=== PATIENT | male | born 1955 | race Caucasian/White ===

== ENCOUNTER 2016-06-12 13:58 | Inpatient (IN) | payer OTHER ==
[2016-06-12] VITALS (22 sets, daily range): BP systolic 95–177; BP diastolic 54–126; PULSE 74–133; RESP 24–40; TEMP 98.3–98.6; O2SAT 92–100
[~2016-06-12] VITALS: Ht 170.2 cm; Wt 99.9 kg
[2016-06-12] MEDS ORDERED: RESP: ALBUTEROL 2.5 MG/IPRATROPIUM 0.5 MG NEB (PRN) ONE (14:06)
[2016-06-12] MEDS: RESP: ALBUTEROL 2.5 MG/IPRATROPIUM 0.5 MG NEB (SCH) INH ×4 (14:12→20:13)
[2016-06-12] MEDS ORDERED: methylPREDNISolone SOD SUCC 125 MG/2 ML VIAL IVP ONE (14:15)
[2016-06-12] MEDS: SODIUM CHLORIDE 0.9% FLUSH 5 ML FLUSH IVF PRN ×2 (14:17→15:10)
[2016-06-12 14:21] LABS: BLOOD GAS BASE EXCESS 8.3 mmol/L (-2-2); BLOOD GAS CARBOXYHEMOGLOBIN 1.7 % (0-4); BLOOD GAS HCO3 36 mmol/L (22-26); BLOOD GAS METHEMOGLOBIN 1.3 % (0-2); BLOOD GAS O2 HGB SATURATION 97 % (90-100); BLOOD GAS OXYGEN CONTENT 17.3 Vol % (12.0-20.0); BLOOD GAS PCO2 88 mmHG (38-42); BLOOD GAS PO2 356 mmHG (61-120); BLOOD GAS TOTAL HGB 12.1 G/DL (12.0-16.0); TEMP CORR TO 98.6
[2016-06-12 14:24] LABS: AUTOMATED NEUTROPHIL # 7.6 TH/MM3 (1.8-7.7); BASOPHIL % 0.4 % (0.0-2.0); EOSINOPHIL # 0.8 TH/MM3 (0-0.4); EOSINOPHIL % 6.7 % (0.0-4.0); HEMATOCRIT 39.9 % (39.0-51.0); LYMPH % 17.4 % (9.0-44.0); LYMPHOCYTE # 2.1 TH/MM3 (1.0-4.8); MEAN CELL VOLUME 85.2 FL (80.0-100.0); MEAN CORPUSCULAR HEMOGLOBIN 26.6 PG (27.0-34.0); MEAN CORPUSCULAR HGB CONC 31.2 % (32.0-36.0); MONO % 13.9 % (0.0-8.0); NEUT % 61.6 % (16.0-70.0); PLATELET COUNT 223 TH/MM3 (150-450); RED BLOOD COUNT 4.69 MIL/MM3 (4.50-5.90); RED CELL DISTRIBUTION WIDTH 16.7 % (11.6-17.2); WHITE BLOOD COUNT 12.2 TH/MM3 (4.0-11.0)
[2016-06-12 14:25] LABS: HEMO FLAGS DIFF FINAL
[2016-06-12 14:28] LABS: POTASSIUM 4.3 MEQ/L (3.5-5.1)
[2016-06-12] MEDS ORDERED: ALBU1.25 NEB (14:28)
[2016-06-12] MEDS ORDERED: VENTAER INH (14:28)
[2016-06-12 14:31] LABS: BICARBONATE 37.1 MEQ/L (21.0-32.0); MAGNESIUM 1.7 MG/DL (1.5-2.5)
[2016-06-12 14:32] LABS: INTERNATIONAL NORMALIZED RATIO 0.9 RATIO; PROTHROMBIN TIME - PATIENT 9.9 SEC (9.8-11.6)
[2016-06-12] MEDS: RESP: ALBUTEROL 2.5 MG/3 ML NEB (SCH) INH ×3 (14:33→14:44)
--- NOTE | 2016-06-12 14:34 | PD ---
HPI Chief Complaint: Respiratory Distress Time Seen by Provider: 14:06 Travel History International Travel<30 days: No Contact w/Intl Traveler<30days: No Traveled to known affect area: No History of Present Illness HPI 61-year-old male came to the emergency room with history of severe shortness of breath. Patient has history of COPD and requires home oxygen. He says he has been sick for past 2 days. Patient says that he has been having chest congestion and cough prior to that. He is been taking his nebulizer but it's not helping. He has never been hospitalized in ICU or intubated. His last admission for COPD was in 2003. Patient could only speak one word per breath. His oxygen saturation in triage was 72% on his home O2 cylinder. Patient told me he quit smoking 2 years ago. PFSH Past Medical History Narrative Medical List of his past medical history as reviewed from the nursing note. Arthritis: No Asthma: Yes Autoimmune Disease: No Heart Rhythm Problems: No Cardiovascular Problems: No High Cholesterol: No Chest Pain: No Congestive Heart Failure: No COPD: Yes Cerebrovascular Accident: No Diabetes: No Diminished Hearing: No Gastrointestinal Disorders: No GERD: No Glaucoma: No Headaches: No Hepatitis: Yes Hiatal Hernia: No Hypertension: No Kidney Stones: No Musculoskeletal: No Neurologic: No Respiratory: No Myocardial Infarction: No Renal Failure: No Seizures: No Sleep Apnea: No Thyroid Disease: No Ulcer: No Tetanus Vaccination: Unknown Influenza Vaccination: No Past Surgical History Abdominal Surgery: No AICD: No Cardiac Surgery: No Ear Surgery: No Endocrine Surgery: No Eye Surgery: No Genitourinary Surgery: No Gynecologic Surgery: No Neurologic Surgery: No Oral Surgery: No Pacemaker: No Thoracic Surgery: No Other Surgery: Yes (finger right 3rd) Social History Alcohol Use: Yes (occ) Tobacco Use: Yes (quit x2 months ago) Substance Use: No Allergies-Medications (Allergen,Severity, Reaction): Coded Allergies: No Known Allergies (Verified Allergy, Severe, 03/25/04) Comments No known drug allergies. Reported Meds & Prescriptions Reported Meds & Active Scripts Active Reported Albuterol Neb (Albuterol Sulfate) 1.25 Mg/3 Ml Neb 1.25 Mg NEB Q4HR NEB PRN Ventolin Hfa 18 GM Inh (Albuterol Sulfate) 90 Mcg/Act Aer 2 Puff INH Q4H PRN Narrative Medication List of his home medications reviewed from the nursing note. Review of Systems Except as stated in HPI: all other systems reviewed are Neg Physical Exam Narrative GENERAL: Awake, severe respiratory distress, anxious SKIN: Warm and dry. HEAD: Atraumatic. Normocephalic. EYES: Pupils equal and round. No scleral icterus. No injection or drainage. ENT: No nasal bleeding or discharge. Mucous membranes pink and moist. NECK: Trachea midline. No JVD. CARDIOVASCULAR: Regular rate and rhythm. No murmur appreciated. RESPIRATORY: Severe respiratory distress with air hunger, accessory muscles of respiration used, extremely diminished air entry GASTROINTESTINAL: Abdomen soft, non-tender, nondistended. Hepatic and splenic margins not palpable. MUSCULOSKELETAL: No obvious deformities. No clubbing. No cyanosis. No edema. NEUROLOGICAL: Awake and alert. No obvious cranial nerve deficits. Motor grossly within normal limits. Normal speech. PSYCHIATRIC: Appropriate mood and affect; insight and judgment normal. Data Data Last Documented VS Vital Signs Date Time Temp Pulse Resp B/P Pulse Ox O2 Delivery O2 Flow Rate FiO2 06/12/16 15:32 133 26 117/56 95 BiPAP 35 06/12/16 14:47 15 06/12/16 14:19 98.3 Orders Albuterol-Ipratropium Neb (Duoneb Neb) (06/12/16 14:06) Complete Blood Count With Diff (06/12/16 14:07) Basic Metabolic Panel (Bmp) (06/12/16 14:07) B-Type Natriuretic Peptide (06/12/16 14:07) Prothrombin Time / Inr (Pt) (06/12/16 14:07) Magnesium (Mg) (06/12/16 14:07) Ckmb (Isoenzyme) Profile (06/12/16 14:07) Troponin I (06/12/16 14:07) Arterial Blood Gas (Abg) (06/12/16 14:07) Urinalysis - C+S If Indicated (06/12/16 14:07) Blood Culture (06/12/16 14:07) Iv Access Insert/Monitor (06/12/16 14:07) Electrocardiogram (06/12/16 14:07) Ecg Monitoring (06/12/16 14:07) Oximetry (06/12/16 14:07) Oxygen Administration (06/12/16 14:07) Chest, Single Ap (06/12/16 14:07) Sodium Chloride 0.9% Flush (Ns Flush) (06/12/16 14:15) Methylprednisolone So Succ Inj (Solumedr (06/12/16 14:15) Albuterol-Ipratropium Neb (Duoneb Neb) (06/12/16 14:15) Lactic Acid (06/12/16 14:08) Albuterol Neb (Albuterol Neb) (06/12/16 14:30) Resp Bipap / Cpap Non Invas Vt (06/12/16 ) Arterial Blood Gas (Abg) (06/12/16 ) Diltiazem Inj (Cardizem Inj) (06/12/16 15:15) Sodium Chlorid 0.9% 500 Ml Inj (Ns 500 M (06/12/16 15:15) Diltiazem Inj (Cardizem Inj) (06/12/16 15:02) Diltiazem (Cardizem) (06/12/16 15:15) Heparin Inj (Heparin Inj) (06/12/16 15:15) Heparin-D5w Inj (Heparin-D5w Inj) (06/12/16 15:15) Act Partial Throm Time (Ptt) (06/12/16 15:13) Admit Order (Ed Use Only) (06/12/16 15:53) Labs Laboratory Tests Test 06/12/16 06/12/16 06/12/16 14:10 14:12 15:16 White Blood Count 12.2 TH/MM3 Red Blood Count 4.69 MIL/MM3 Hemoglobin 12.5 GM/DL Hematocrit 39.9 % Mean Corpuscular Volume 85.2 FL Mean Corpuscular Hemoglobin 26.6 PG Mean Corpuscular Hemoglobin 31.2 % Concent Red Cell Distribution Width 16.7 % Platelet Count 223 TH/MM3 Mean Platelet Volume 7.7 FL Neutrophils (%) (Auto) 61.6 % Lymphocytes (%) (Auto) 17.4 % Monocytes (%) (Auto) 13.9 % Eosinophils (%) (Auto) 6.7 % Basophils (%) (Auto) 0.4 % Neutrophils # (Auto) 7.6 TH/MM3 Lymphocytes # (Auto) 2.1 TH/MM3 Monocytes # (Auto) 1.7 TH/MM3 Eosinophils # (Auto) 0.8 TH/MM3 Basophils # (Auto) 0.0 TH/MM3 CBC Comment DIFF FINAL Differential Comment Prothrombin Time 9.9 SEC Prothromb Time International 0.9 RATIO Ratio Activated Partial 26.3 SEC Thromboplast Time Sodium Level 141 MEQ/L Potassium Level 4.3 MEQ/L Chloride Level 99 MEQ/L Carbon Dioxide Level 37.1 MEQ/L Anion Gap 5 MEQ/L Blood Urea Nitrogen 12 MG/DL Creatinine 0.62 MG/DL Estimat Glomerular Filtration 131 ML/MIN Rate Random Glucose 115 MG/DL Lactic Acid Level 1.0 mmol/L Calcium Level 8.5 MG/DL Magnesium Level 1.7 MG/DL Total Creatine Kinase 48 U/L Troponin I 0.02 NG/ML B-Type Natriuretic Peptide 167 PG/ML Blood Gas Puncture Site RT RADIAL RT RADIAL Blood Gas Patient Temperature 98.6 98.6 Blood Gas HCO3 36 mmol/L 33 mmol/L Blood Gas Base Excess 8.3 mmol/L 6.9 mmol/L Blood Gas Oxygen Saturation 97 % 96 % Arterial Blood pH 7.23 7.31 Arterial Blood Partial 88 mmHG 67 mmHG Pressure CO2 Arterial Blood Partial 356 mmHG 131 mmHG Pressure O2 Arterial Blood Oxygen Content 17.3 Vol % 16.0 Vol % Arterial Blood 1.7 % 2.0 % Carboxyhemoglobin Arterial Blood Methemoglobin 1.3 % 1.3 % Blood Gas Hemoglobin 12.1 G/DL 11.6 G/DL Oxygen Delivery Device NRB BIPAP Blood Gas Inspired Oxygen 100 % 45 % Blood Gas Ventilator Setting 15 IPAP 7 EPAP MDM Medical Decision Making Medical Screen Exam Complete: Yes Emergency Medical Condition: Yes Medical Record Reviewed: Yes Interpretation(s) Twelve-lead EKG was reviewed by me. There is a lot of motion artifact. It's hard to tell whether it sinus tachycardia or atrial fibrillation/atrial flutter. Heart rate is 150 bpm. Differential Diagnosis COPD exacerbation, CHF exacerbation, pneumonia Narrative Course 2:33 PM patient upon arrival was given 3 duonebs and oxygen saturation is doing well at this point. However blood gas shows respiratory acidosis. I have ordered a BiPAP and 3 more albuterol nebulizers. Upon reassessing his lung sounds patient still is very tight but I can hear some end expiratory wheeze. I will also ordered 125 mg of Solu-Medrol. 3:15 PM patient's heart rate constantly remained in the 150s. EKG was repeated to get a better baseline which still showed motion artifact but good P waves could not be detected. I decided to give him a 15 mg bolus of Cardizem to see if the rate would slow down and show any atrial fibrillation/atrial flutter. Patient's blood pressure prior to injecting the Cardizem bolus was 103 systolic. Patient was still awake and answering questions appropriately and fully alert. His cousin had just walked into the room who said she had more of his information and that he has history of atrial fibrillation. As soon as Cardizem was given heart rate dropped down to the 90s and the rhythm now is in A. fib with a flutter. However blood pressure dropped to 86 systolic. Patient is getting an IV fluid bolus. I have ordered heparin bolus and drip for him. Patient obviously will require to be admitted. Critical Care Narrative Aggregate critical care time was 60 minutes. Time to perform other separately billable procedures was not included in the critical care time. My time did not include minutes spent treating any other patients simultaneously or on activities that did not directly contribute to the patient's treatment. The services I provided to this patient were to treat and/or prevent clinically significant deterioration that could result in: Severe respiratory distress, respiratory acidosis, BiPAP, multiple nebulizer administration, atrial flutter with 2-1 block, heparin bolus and drip I provided critical care services requiring my management, as noted below: Chart data review, documentation time, medication orders and management, vital sign assessments/reviewing monitor data, ordering and reviewing lab tests, ordering and interpreting/reviewing x-rays and diagnostic studies, care of the patient and discussion of the patient with the admitting physicians. Procedures EKG Prior to Arrival: No Diagnosis Primary Impression: COPD exacerbation Additional Impressions: Atrial flutter, paroxysmal Signs and symptoms of severe respiratory distress Respiratory acidosis Admitting Information Admitting Physician Requests: Rishabh Reinoso MD Jun 12, 2016 14:34
[2016-06-12] MEDS ORDERED: DILTIAZEM HCL 25 MG/5 ML VIAL ONE (15:02)
[2016-06-12] MEDS ORDERED: HEPARIN SODIUM - IV 10,000 UNITS/10 ML VIAL IV ONE (15:15)
[2016-06-12] MEDS ORDERED: SODIUM CHLORID 0.9% 500 ML INJ 500 ML IV ONE (15:15)
[2016-06-12] MEDS ORDERED: DILTIAZEM HCL 25 MG/5 ML VIAL IV ONE (15:15)
[2016-06-12] MEDS ORDERED: DILTIAZEM HCL 60 MG TAB PO ONE (15:15)
--- NOTE | 2016-06-12 15:19 | RADHPO ---
EXAM DATE/TIME: 06/12/2016 14:24 [facility] COMPARISON: No previous studies available for comparison. INDICATIONS : Short of breath MEDICAL HISTORY : Chronic obstructive pulmonary disease. Asthma SURGICAL HISTORY : None. ENCOUNTER: Initial ACUITY: 1 day PAIN SCORE: 3/10 LOCATION: Bilateral chest FINDINGS: A single view of the chest demonstrates the lungs to be symmetrically aerated without evidence of mas s, infiltrate or effusion. There is some prominence of the pulmonary vasculature. The heart size is m ildly enlarged.. Osseous structures are intact. CONCLUSION: Pulmonary venous congestion and mild cardiomegaly. No acute pulmonary infiltrates. Angel Kingsley MD on June 12, 2016 at 15:17 Board Certified Radiologist. This report was verified electronically.
[2016-06-12 15:24] LABS: BLOOD GAS BASE EXCESS 6.9 mmol/L (-2-2); BLOOD GAS HCO3 33 mmol/L (22-26); BLOOD GAS METHEMOGLOBIN 1.3 % (0-2); BLOOD GAS O2 HGB SATURATION 96 % (90-100); BLOOD GAS PCO2 67 mmHG (38-42); BLOOD GAS PO2 131 mmHG (61-120); BLOOD GAS TOTAL HGB 11.6 G/DL (12.0-16.0); TEMP CORR TO 98.6
[2016-06-12 15:25] LABS: CRITICAL VALUE YES; OXYGEN DEVICE BIPAP
[2016-06-12 15:26] LABS: DRAW SITE RT RADIAL; FIO2 45 %; NUMBER OF ARTERIAL PUNCTURES 1; STAT YES; ULNAR PULSE PRESENT; VENT SETTINGS 15 IPAP 7 EPAP
[2016-06-12 15:27] LABS: APTT (PATIENT) 26.3 SEC (24.3-30.1)
[2016-06-12] MEDS: HEPARIN-D5W INJ 250 ML IV SCH (15:41)
[2016-06-12] MEDS ORDERED: CHLORHEXIDINE GLUCONATE 2 % 1 PACK (2 CLOTHS)(extra cloths) TOP PRN (17:45)
[2016-06-12 18:12] LABS: CRITICAL VALUE YES; DRAW SITE RT RADIAL; FIO2 100 %; NUMBER OF ARTERIAL PUNCTURES 1; OXYGEN DEVICE NRB; STAT YES; ULNAR PULSE PRESENT
[2016-06-12 19:59] LABS: APTT (PATIENT) 46.5 SEC (24.3-30.1)
[2016-06-12] MEDS: methylPREDNISolone SOD SUCC 125 MG/2 ML VIAL IVP SCH (20:25)
[2016-06-12] MEDS: RESP: ALBUTEROL 2.5 MG/3 ML NEB (PRN) INH (23:36)
[2016-06-13] VITALS (24 sets, daily range): BP systolic 132–155; BP diastolic 59–80; PULSE 72–148; RESP 16–38; TEMP 97.5–98.3; O2SAT 89–98
[2016-06-13 02:32] LABS: APTT (PATIENT) 48.4 SEC (24.3-30.1)
[2016-06-13] MEDS: HEPARIN-D5W INJ 250 ML IV SCH (03:21)
[2016-06-13] MEDS: CHLORHEXIDINE GLUCONATE 2 % 1 PACK (2 CLOTHS)(taper/protocol) TOP SCH (03:29)
[2016-06-13] MEDS: methylPREDNISolone SOD SUCC 125 MG/2 ML VIAL IVP SCH ×4 (03:29→21:02)
[2016-06-13] MEDS: RESP: ALBUTEROL 2.5 MG/3 ML NEB (PRN) INH (04:01)
[2016-06-13 06:26] LABS: AUTOMATED NEUTROPHIL # 5.6 TH/MM3 (1.8-7.7); EOSINOPHIL % 0.1 % (0.0-4.0); HEMATOCRIT 33.3 % (39.0-51.0); HEMO FLAGS DIFF FINAL; LYMPH % 8.6 % (9.0-44.0); LYMPHOCYTE # 0.5 TH/MM3 (1.0-4.8); MEAN CELL VOLUME 82.9 FL (80.0-100.0); MEAN CORPUSCULAR HEMOGLOBIN 26.2 PG (27.0-34.0); MEAN CORPUSCULAR HGB CONC 31.6 % (32.0-36.0); MONO % 2.1 % (0.0-8.0); NEUT % 89.2 % (16.0-70.0); PLATELET COUNT 187 TH/MM3 (150-450); RED BLOOD COUNT 4.01 MIL/MM3 (4.50-5.90); RED CELL DISTRIBUTION WIDTH 15.8 % (11.6-17.2); WHITE BLOOD COUNT 6.2 TH/MM3 (4.0-11.0)
[2016-06-13 06:36] LABS: POTASSIUM 4.1 MEQ/L (3.5-5.1)
[2016-06-13 06:39] LABS: BICARBONATE 33.6 MEQ/L (21.0-32.0)
[2016-06-13 06:41] LABS: APTT (PATIENT) 46.4 SEC (24.3-30.1)
[2016-06-13] MEDS: RESP: ALBUTEROL 2.5 MG/IPRATROPIUM 0.5 MG NEB (SCH) INH ×4 (07:21→19:11)
[2016-06-13] MEDS: AZITHROMYCIN 250 MG TAB PO SCH (08:36)
--- NOTE | 2016-06-13 10:14 | HHI.HP ---
[facility] No Primary Care Physician Admission Diagnosis respiratory distress, atrial flutter, COPD exacerbation Diagnoses: (1) Acute respiratory failure Diagnosis: Principal (2) COPD exacerbation (3) Atrial flutter, paroxysmal Chief Complaint: Dyspnea Travel History International Travel<30 Days: No Contact w/Intl Traveler <30 Da: No Traveled to Known Affected Are: No History of Present Illness The patient is a 61-year-old male with known history of COPD who presented to emergency department with worsening shortness of breath over the past few days. He uses 3 L of oxygen at night, but no supplemental oxygen during the day. He has seen pulmonology recently and was supposed to get a CT of his chest with contrast done yesterday as an outpatient. He was unable to go get the test done because he had worsening symptoms and presented to the ER. He states that he does feel better today after receiving treatment. He is currently on 4 L of oxygen. He developed atrial fibrillation/flutter with RVR while in the ER. He was given a dose of IV Cardizem and his heart rate improved. He denies chest pain. Still reporting cough and dyspnea. Review of Systems Constitutional: DENIES: Fever, Chills, Night Sweats Eyes: DENIES: Blurred vision, Vision loss Ears, nose, mouth, throat: DENIES: Hearing loss Respiratory: COMPLAINS OF: Cough, Wheezing, Shortness of breath, DENIES: Sputum production Cardiovascular: COMPLAINS OF: Dyspnea on Exertion, DENIES: Chest pain, Palpitations, Lower Extremity Edema Gastrointestinal: DENIES: Abdominal pain, Constipation, Diarrhea, Nausea, Vomiting Genitourinary: DENIES: Urinary frequency, Urinary incontinence, Urgency, Hematuria, Dysuria, Nocturia Musculoskeletal: DENIES: Joint pain, Muscle aches Integumentary: DENIES: Pruritus, Rash Hematologic/lymphatic: DENIES: Bruising Neurologic: DENIES: Headache Past Family Social History Past Medical History Asthma/COPD History of hepatitis Past Surgical History Right third finger surgery Reported Medications Albuterol Neb (Albuterol Sulfate) 1.25 Mg/3 Ml Neb 1.25 Mg NEB Q4HR NEB PRN Ventolin Hfa 18 GM Inh (Albuterol Sulfate) 90 Mcg/Act Aer 2 Puff INH Q4H PRN Allergies: Coded Allergies: No Known Allergies (Verified Allergy, Severe, 03/25/04) Family History Denies Social History Reports occasional alcohol use. Quit smoking 2 months ago. Denies illicit drug use. Physical Exam Vital Signs Vital Signs Date Time Temp Pulse Resp B/P Pulse Ox O2 Delivery O2 Flow Rate FiO2 06/13/16 08:00 97.7 86 24 134/77 97 06/13/16 07:23 96 Nasal Cannula 4.00 06/13/16 06:01 90 06/13/16 06:01 90 25 137/66 94 06/13/16 05:01 84 06/13/16 05:01 84 24 132/59 96 06/13/16 04:01 78 06/13/16 04:01 96 Nasal Cannula 4.00 06/13/16 04:01 97.5 78 24 155/80 95 06/13/16 03:01 74 06/13/16 03:01 74 23 134/64 98 06/13/16 02:01 74 37 143/62 96 06/13/16 02:01 74 06/13/16 01:11 98 35 06/13/16 01:01 72 27 140/74 96 06/13/16 01:01 72 06/13/16 00:01 74 06/13/16 00:01 97.7 74 16 135/68 98 06/12/16 23:59 98 35 06/12/16 23:01 82 28 154/83 95 06/12/16 23:01 82 06/12/16 22:01 74 06/12/16 22:01 74 24 141/67 95 06/12/16 21:01 90 06/12/16 21:01 90 40 155/72 95 06/12/16 20:13 94 Nasal Cannula 4.00 06/12/16 20:01 96 06/12/16 20:01 98.4 96 28 145/87 92 06/12/16 19:01 84 34 150/88 94 06/12/16 18:01 100 34 128/73 95 06/12/16 18:01 98.6 87 30 128/73 94 06/12/16 18:00 93 06/12/16 17:20 104 26 128/71 94 06/12/16 16:46 93 Venturi Mask 6.00 50 06/12/16 16:40 108 26 98/67 94 06/12/16 16:30 104 26 109/56 95 06/12/16 16:20 120 148/54 95 06/12/16 16:10 130 95/73 97 06/12/16 15:32 133 26 117/56 95 BiPAP 35 06/12/16 15:30 96 35 06/12/16 15:11 99 06/12/16 14:47 98 BiPAP 15 45 06/12/16 14:33 96 45 06/12/16 14:29 144/92 06/12/16 14:21 150 34 98 Non-Rebreather 14 06/12/16 14:21 98 Non-Rebreather 14 06/12/16 14:21 98 06/12/16 14:19 98.3 130 34 177/126 100 06/12/16 14:15 93 Non-Rebreather 15.00 100 Physical Exam GENERAL: Well-nourished, well-developed [] in no acute distress. HEENT: Normocephalic, atraumatic. Pupils equal, round and reactive. Extraocular movements intact. No scleral icterus. No injection or drainage. Oropharynx is clear. Mucous membranes are moist. CARDIOVASCULAR: Regular rate and rhythm without murmurs, gallops, or rubs. RESPIRATORY: Clear to auscultation. No wheezes, rales, or rhonchi. Breathing is non-labored. GASTROINTESTINAL: Abdomen soft, non-tender, nondistended. EXTREMITIES: No lower extremity edema. No calf tenderness. PSYCH: Alert and oriented x 3. Laboratory Laboratory Tests Test 06/12/16 06/12/16 06/12/16 06/12/16 14:10 14:12 15:16 19:23 White Blood Count 12.2 Red Blood Count 4.69 Hemoglobin 12.5 Hematocrit 39.9 Mean Corpuscular Volume 85.2 Mean Corpuscular Hemoglobin 26.6 Mean Corpuscular Hemoglobin 31.2 Concent Red Cell Distribution Width 16.7 Platelet Count 223 Mean Platelet Volume 7.7 Neutrophils (%) (Auto) 61.6 Lymphocytes (%) (Auto) 17.4 Monocytes (%) (Auto) 13.9 Eosinophils (%) (Auto) 6.7 Basophils (%) (Auto) 0.4 Neutrophils # (Auto) 7.6 Lymphocytes # (Auto) 2.1 Monocytes # (Auto) 1.7 Eosinophils # (Auto) 0.8 Basophils # (Auto) 0.0 CBC Comment DIFF FINAL Differential Comment Prothrombin Time 9.9 Prothromb Time International 0.9 Ratio Activated Partial 26.3 46.5 Thromboplast Time Sodium Level 141 Potassium Level 4.3 Chloride Level 99 Carbon Dioxide Level 37.1 Anion Gap 5 Blood Urea Nitrogen 12 Creatinine 0.62 Estimat Glomerular Filtration 131 Rate Random Glucose 115 Lactic Acid Level 1.0 Calcium Level 8.5 Magnesium Level 1.7 Total Creatine Kinase 48 Troponin I 0.02 B-Type Natriuretic Peptide 167 Blood Gas Puncture Site RT RADIAL RT RADIAL Blood Gas Patient Temperature 98.6 98.6 Blood Gas HCO3 36 33 Blood Gas Base Excess 8.3 6.9 Blood Gas Oxygen Saturation 97 96 Arterial Blood pH 7.23 7.31 Arterial Blood Partial 88 67 Pressure CO2 Arterial Blood Partial 356 131 Pressure O2 Arterial Blood Oxygen Content 17.3 16.0 Arterial Blood 1.7 2.0 Carboxyhemoglobin Arterial Blood Methemoglobin 1.3 1.3 Blood Gas Hemoglobin 12.1 11.6 Oxygen Delivery Device NRB BIPAP Blood Gas Inspired Oxygen 100 45 Blood Gas Ventilator Setting 15 IPAP 7 EPAP Test 06/13/16 06/13/16 02:05 06:02 Activated Partial 48.4 46.4 Thromboplast Time White Blood Count 6.2 Red Blood Count 4.01 Hemoglobin 10.5 Hematocrit 33.3 Mean Corpuscular Volume 82.9 Mean Corpuscular Hemoglobin 26.2 Mean Corpuscular Hemoglobin 31.6 Concent Red Cell Distribution Width 15.8 Platelet Count 187 Mean Platelet Volume 7.8 Neutrophils (%) (Auto) 89.2 Lymphocytes (%) (Auto) 8.6 Monocytes (%) (Auto) 2.1 Eosinophils (%) (Auto) 0.1 Basophils (%) (Auto) 0.0 Neutrophils # (Auto) 5.6 Lymphocytes # (Auto) 0.5 Monocytes # (Auto) 0.1 Eosinophils # (Auto) 0.0 Basophils # (Auto) 0.0 CBC Comment DIFF FINAL Differential Comment Sodium Level 139 Potassium Level 4.1 Chloride Level 98 Carbon Dioxide Level 33.6 Anion Gap 7 Blood Urea Nitrogen 17 Creatinine 0.67 Estimat Glomerular Filtration 120 Rate Random Glucose 216 Calcium Level 8.3 Date/Time Procedure Status Source Growth 06/12/16 21:50 Influenza Types A,B Antigen (AVEL) - Final Complete Nasal Washing NEGATIVE FOR FLU A AND B ANTIGEN.... 06/12/16 14:15 Aerobic Blood Culture Received Blood Peripheral Pending 06/12/16 14:15 Anaerobic Blood Culture Received Blood Peripheral Pending Result Diagram: 06/13/16 0602 06/13/16 0602 Imaging Last Impressions Chest X-Ray 06/12/16 1407 Signed Impressions: Service Date/Time: Sunday, June 12, 2016 14:24 - CONCLUSION: Pulmonary venous congestion and mild cardiomegaly. No acute pulmonary infiltrates. Angel Kingsley MD Assessment and Plan Assessment and Plan 1. Acute respiratory failure with hypoxia and hypercapnia: Secondary to COPD exacerbation. Continue supplemental oxygen. Did require BiPAP initially. Continue bronchodilators, steroids, antibiotics. 2. Atrial fibrillation with RVR: Heart rate improved after he was given a dose of IV Cardizem in the ER. Rhythm is still irregular. Intermittently tachycardic up to 140s with exertion, 115 at rest. At oral Cardizem. Monitor on telemetry. Consult cardiology. Start Lovenox, Coumadin. 3. DVT prophylaxis: Lovenox. Problem Qualifiers (1) Acute respiratory failure: Qualified Code: J96.01 - Acute respiratory failure with hypoxia and hypercapnia Phill Sultana MD Jun 13, 2016 10:14
[2016-06-13] MEDS ORDERED: DILTIAZEM-CD 120 MG CAP ER PO SCH (11:00)
[2016-06-13 11:13] LABS: BLOOD, URINE NEG (NEG); GLUCOSE,URINE NEG (NEG); KETONE, URINE NEG (NEG); NITRITE,URINE NEG (NEG)
[2016-06-13 11:55] LABS: COMMENT (UR) CULT NOT INDICATED; CULTURE IF INDICATED CULT NOT INDICATED; METHOD OF COLLECTION CLEAN CATCH; RBC, URINE 0-3 /hpf (0-3); SQUAMOUS EPITHELIAL CELL URINE 0-5 /hpf (0-5); URINE COLOR YELLOW (YELLW/STRAW)
[2016-06-13] MEDS: ENOXAPARIN SODIUM 100 MG/ML SYRINGE SQ SCH (12:19)
--- NOTE | 2016-06-13 14:30 | EKG ---
Date Performed: 06/12/2016 Time Performed: 14:03:32 PTAGE: 61 years EKG: Poor quality tracing with a supraventricular tachycardia; atrial flutter is not excluded. R ight axis deviation Right ventricular hypertrophy Septal T wave changes may be due to hypertrophy and /or ischemia Compared to previous tracing, the right axis deviation and supraventricular tachycardia are new. Pulmonary embolus should be excluded clinically. Due to the poor technical quality of the present tracing, the EKGs are not, otherwise, directly comparable. Abnormal ECG PREVIOUS TRACING : 03/24/2004 14.22 DOCTOR: Tessa Armenta Interpretating Date/Time 06/13/2016 14:29:36
--- NOTE | 2016-06-13 14:34 | EKG ---
Date Performed: 06/12/2016 Time Performed: 14:47:48 PTAGE: 61 years EKG: Supraventricular tachycardia with marked baseline artifact that precludes accurate determin ation of the rhythm; atrial flutter is not excluded. Rightward axis Right ventricular hypertrophy Inf erior T wave changes may be due to hypertrophy and/or ischemia Compared to previous tracing, there thompson s been no gross serial change but both tracings are technically inadequate. A repeat tracing is advi sed. A rhythm strip may be useful in helping to determine the nature of the supraventricular tachyca rdia. Abnormal ECG PREVIOUS TRACING : 06/12/2016 14.03 DOCTOR: Tessa Armenta Interpretating Date/Time 06/13/2016 14:36:06
[2016-06-13] MEDS ORDERED: WARFARIN SOD 5 MG TAB PO SCH (16:00)
--- NOTE | 2016-06-13 17:04 | MB ---
cc: DEYANIRA REYES MD DATE OF CONSULTATION: 06/13/2016. REASON FOR CONSULTATION: COPD exacerbation. REQUESTING PHYSICIAN: Phill Sultana MD. HISTORY OF PRESENT ILLNESS: Mr. Sanchez is a 61-year-old male with longstanding history of COPD. He has oxygen and nebulizer treatment that he uses only off and on. He had gone to [place] for a job for about seven years. He says he has not seen a physician for a long period of time. He came to the hospital with worsening of shortness of breath for the last three days or so. He has a cough and congestion. No fever or chills. No chest pain. No nausea or vomiting. He was evaluated in the emergency room. His chest x-ray showed no acute infiltrate. His blood gas on 100% oxygen showed a pH of 7.23, pC02 of 88, p02 56. He was brought down to [facility] and repeat blood gas showed pH of 7.31, pC02 of 67, p02 of 131. Currently he is on nasal cannula. His CBC showed white blood cell count 6.3, hemoglobin 10.5, hematocrit 33.3, MCV 82, platelet count 187,000. Sodium 139, potassium 4.1, chloride 98, carbon dioxide 34, BUN 70, creatinine 0.67. PAST MEDICAL HISTORY: His past medical history is significant for: 1. History of COPD. 2. History of hepatitis. 3. History of atrial fibrillation. MEDICATIONS: He is currently takin. Coumadin 5 milligrams a day. 2. Lovenox 90 milligrams q. 12 hours. 3. Diltiazem 120 milligrams. 4. Albuterol and Atrovent nebulizer treatment. 5. Solu-Medrol 60 milligrams q. 6 hours. 6. Zithromax 500 milligrams a day. ALLERGIES: NO KNOWN DRUG ALLERGIES. SOCIAL HISTORY: He is single. He works as a [employer]. He has history of smoking two packs a day which he quit 1-1/2 years ago. FAMILY HISTORY: He is single. He lives with his mother. He has one brother but he has not talked to him for a long time. REVIEW OF SYSTEMS: Normally he is up around and active. Weight is stable. No DVT or pulmonary embolism. No seizure, stroke or epilepsy. He has multiple tattoos on his body. PHYSICAL EXAMINATION: GENERAL: A well-built and well-nourished male mild short of breath. VITAL SIGNS: Blood pressure 149/76, heart rate 107, respirations 19, temperature 98.3. HEAD, EYES, EARS, NOSE, THROAT: Pupils are equal and reactive to light. Oral mucosa and nasal mucosa are normal. NECK: The neck is supple. JVP not raised. CHEST: He has a hyperresonant chest and bilateral expiratory rhonchi. CARDIOVASCULAR: S1 and S2 normal. ABDOMEN: Abdomen benign. EXTREMITIES: He has multiple tattoos. IMPRESSION: 1. COPD exacerbation. 2. Hypercapnic respiratory failure. 3. Atrial fibrillation / atrial flutter. 4. Hypertension. PLAN: 1. We will give him IV Solu-Medrol aerosol treatment with albuterol and Atrovent. 2. I will also start him on Symbicort twice a day. 3. Continue antibiotics. 4. Monitor his electrolytes. 5. Supplement his oxygen. 6. Use BiPAP as needed. 7. Once he gets better, we will check his pulmonary function studies. Further treatment will depend on the course in the hospital. Thank you, Dr. Sultana, for this consultation. MD ORLIN Luque/HEMA /2:47 PM /4:41 PM EUGENIA
[2016-06-13] MEDS: DILTIAZEM HCL 60 MG TAB PO SCH (17:43)
[2016-06-13] MEDS: BUDESONIDE-FORMOTEROL 160/4.5 MCG INHALER INH SCH (21:11)
[2016-06-13] MEDS: ACETAMINOPHEN/HYDROcodone 325 MG/5 MG TAB PO PRN (22:55)
[2016-06-14] VITALS (36 sets, daily range): BP systolic 118–180; BP diastolic 48–82; PULSE 50–96; RESP 16–44; TEMP 97.5–98.8; O2SAT 84–99
[2016-06-14] MEDS: DILTIAZEM HCL 60 MG TAB PO SCH ×5 (00:05→23:46)
[2016-06-14] MEDS: ENOXAPARIN SODIUM 100 MG/ML SYRINGE SQ SCH (00:05)
[2016-06-14] MEDS: methylPREDNISolone SOD SUCC 125 MG/2 ML VIAL IVP SCH ×2 (01:59→08:48)
[2016-06-14] MEDS: CHLORHEXIDINE GLUCONATE 2 % 1 PACK (2 CLOTHS)(taper/protocol) TOP SCH (04:00)
[2016-06-14 05:53] LABS: AUTOMATED NEUTROPHIL # 10.7 TH/MM3 (1.8-7.7); EOSINOPHIL % 0.1 % (0.0-4.0); HEMATOCRIT 34.2 % (39.0-51.0); HEMO FLAGS DIFF FINAL; LYMPH % 4.4 % (9.0-44.0); LYMPHOCYTE # 0.5 TH/MM3 (1.0-4.8); MEAN CELL VOLUME 83.1 FL (80.0-100.0); MEAN CORPUSCULAR HEMOGLOBIN 26.2 PG (27.0-34.0); MEAN CORPUSCULAR HGB CONC 31.6 % (32.0-36.0); MONO % 4.2 % (0.0-8.0); NEUT % 91.3 % (16.0-70.0); PLATELET COUNT 205 TH/MM3 (150-450); RED BLOOD COUNT 4.11 MIL/MM3 (4.50-5.90); RED CELL DISTRIBUTION WIDTH 15.9 % (11.6-17.2); WHITE BLOOD COUNT 11.7 TH/MM3 (4.0-11.0)
[2016-06-14 06:03] LABS: INTERNATIONAL NORMALIZED RATIO 0.9 RATIO; PROTHROMBIN TIME - PATIENT 9.9 SEC (9.8-11.6)
[2016-06-14 07:15] LABS: BICARBONATE 34.7 MEQ/L (21.0-32.0)
[2016-06-14] MEDS: RESP: ALBUTEROL 2.5 MG/IPRATROPIUM 0.5 MG NEB (SCH) INH ×4 (07:23→19:11)
[2016-06-14] MEDS: ACETAMINOPHEN/HYDROcodone 325 MG/5 MG TAB PO PRN ×2 (08:48→23:47)
[2016-06-14] MEDS: AZITHROMYCIN 250 MG TAB PO SCH (08:48)
[2016-06-14] MEDS: BUDESONIDE-FORMOTEROL 160/4.5 MCG INHALER INH SCH ×2 (08:53→20:18)
--- NOTE | 2016-06-14 10:26 | HHI.PR ---
Subjective Remarks Follow-up respiratory failure, COPD, A. fib. Patient states that he feels a little better today. Still short of breath with activity. No chest pain. Wants to talk to case management about applying for SSI. Objective Vitals Vital Signs Date Time Temp Pulse Resp B/P Pulse Ox O2 Delivery O2 Flow Rate FiO2 06/14/16 07:25 99 Nasal Cannula 4.00 06/14/16 06:35 70 06/14/16 06:05 66 06/14/16 06:01 70 25 133/80 97 06/14/16 05:01 54 16 118/60 96 06/14/16 04:01 98.0 52 19 141/63 97 06/14/16 04:00 50 06/14/16 03:35 98 35 06/14/16 03:01 52 19 131/64 98 06/14/16 02:01 74 26 140/77 95 06/14/16 02:00 74 06/14/16 01:01 74 27 138/72 97 06/14/16 00:15 98 35 06/14/16 00:01 74 06/14/16 00:01 97.8 74 26 149/74 96 06/13/16 23:01 74 27 143/75 95 06/13/16 23:01 74 06/13/16 22:01 74 06/13/16 22:01 74 21 142/69 95 06/13/16 21:01 76 27 137/66 96 06/13/16 21:01 76 06/13/16 20:01 80 06/13/16 20:01 97.9 80 38 140/65 90 06/13/16 19:30 148 30 89 06/13/16 19:30 148 06/13/16 19:11 93 Nasal Cannula 4.00 06/13/16 18:00 88 06/13/16 16:00 86 06/13/16 16:00 97.8 100 22 140/79 92 06/13/16 14:00 100 06/13/16 12:00 98.3 107 19 149/76 92 06/13/16 12:00 96 06/13/16 11:00 84 I/O 06/13/16 06/13/16 06/13/16 06/14/16 06/14/16 06/14/16 07:00 15:00 23:00 07:00 15:00 23:00 Intake Total 624 ml 480 ml 480 ml 480 ml Output Total 700 ml 600 ml 600 ml 500 ml Balance -76 ml -120 ml -120 ml -20 ml Intake Oral 480 ml 480 ml 480 ml 480 ml IV Total 144 ml Output Urine Total 700 ml 600 ml 600 ml 500 ml # Voids 3 # Bowel Movements 1 Result Diagram: 06/14/16 0533 06/14/16 0533 Imaging Last Impressions Chest X-Ray 06/12/16 1407 Signed Impressions: Service Date/Time: Sunday, June 12, 2016 14:24 - CONCLUSION: Pulmonary venous congestion and mild cardiomegaly. No acute pulmonary infiltrates. Angel Kingsley MD Objective Remarks General: No acute distress. Heart: Irregular rhythm. No murmur. Lungs: Diffuse wheeze. Breathing is nonlabored. Abdomen: Soft, nontender, nondistended. Extremities: No lower extremity edema. Psych: Alert and oriented. Urinary Catheter: No Vascular Central Line Catheter: No A/P Problem List: (1) Acute respiratory failure ICD Code: J96.00 Status: Acute (2) COPD exacerbation ICD Code: J44.1 Status: Acute (3) Atrial flutter, paroxysmal ICD Code: I48.92 Status: Acute Assessment and Plan 1. Acute respiratory failure with hypoxia and hypercapnia: Secondary to COPD exacerbation. Continue supplemental oxygen, still on 4 L. Did require BiPAP initially. Continue bronchodilators, steroids, antibiotics. 2. Atrial fibrillation with RVR: Heart rate is improved. Monitor on telemetry. Consult cardiology. Start Xarelto. Continue diltiazem. 3. DVT prophylaxis: Xarelto. Discharge Planning Transfer to medical/surgical floor with telemetry when bed is available. Problem Qualifiers (1) Acute respiratory failure: Qualified Code: J96.01 - Acute respiratory failure with hypoxia and hypercapnia Phill Sultana MD Jun 14, 2016 10:26
--- NOTE | 2016-06-14 10:38 | MB ---
cc: DESEAN FRIED MD DATE OF CONSULTATION: 06/14/2016 REASON FOR CONSULTATION: Atrial flutter, rapid ventricular rate. HISTORY OF PRESENT ILLNESS The patient is a 61-year-old gentleman with history of COPD who presented to the emergency department at [facility] with progressive shortness of breath. When he was in the emergency department he was noted to be in atrial flutter with rapid ventricular rate and given IV Cardizem. He appeared to be in COPD exacerbation. He was treated with IV steroids, supplemental oxygen, BiPAP, bronchodilators. Symptomatically he is doing better from a respiratory perspective. He is now on oral Cardizem. Heart rate controlled. He is feeling much better. PAST MEDICAL HISTORY: 1. COPD. 2. Hepatitis. REPORTED MEDICATIONS: 1. Albuterol. 2. Ventolin. ALLERGIES: NONE. FAMILY HISTORY: Denies any family history of coronary artery disease, sudden cardiac . SOCIAL HISTORY: Occasional alcohol use. He quit smoking two months ago. Denies any drug use. REVIEW OF SYSTEMS A 12-point review of systems was performed. Negative unless otherwise noted in the history of present illness. PHYSICAL EXAMINATION: Pulse 78, blood pressure 133/80 mmHg. General: Alert and oriented x3 in no distress. HEENT: Exam shows pupils reactive to light, his extraocular movements intact. Neck: No elevation in venous distension. No thyromegaly or lymphadenopathy. No carotid bruits. Lungs: Clear to auscultation bilaterally. Decreased breath sounds throughout. Mild end expiratory wheeze. Cardiovascular: Regular, 1/6 systolic murmur. Abdomen: Non-tender, non-distended. Good bowel sounds. No hepatosplenomegaly. Extremities: No clubbing, cyanosis or edema. Good peripheral pulses. Cranial nerves intact. Motor, sensory grossly intact. LABORATORY DATA WBC 11.7, hemoglobin 10.8, platelet count 205. Sodium 139, potassium 5.0, chloride 100, BUN 26, creatinine 0.68. ASSESSMENT: 1. Atrial flutter with rapid ventricular rate. 2. COPD exacerbation. PLAN: Not sure of the duration of time for the atrial flutter. This may been pre-existent but exacerbated by his acute respiratory distress. He is now on Cardizem with better heart rate control. He is on 60 milligrams q6 which we can convert to a longacting once a day formulation upon discharge. Patient was initiated on Warfarin for stroke reduction. He is now rate controlled. 2-D echocardiogram is pending. At this point continue anticoagulation, Cardizem. Will sign off. Call if you have further questions. MD HILARY Garza/VICKIE /9:41 AM /10:02 AM
[2016-06-14] MEDS: RIVAROXABAN 20 MG TAB PO SCH (11:55)
[2016-06-14] MEDS: ACETAMINOPHEN/HYDROcodone 325 MG/10 MG TAB PO PRN ×2 (13:12→18:08)
--- NOTE | 2016-06-14 14:27 | HHI.PR ---
Subjective Remarks 61 YOWM with COPD exac, Hpercapnoic Aníbal VALLEJO Feels much better On Cardiazem Wheezing improved Objective Vital Signs Vital Signs Date Time Temp Pulse Resp B/P Pulse Ox O2 Delivery O2 Flow Rate FiO2 06/14/16 14:00 75 06/14/16 12:00 74 06/14/16 12:00 74 19 152/63 94 06/14/16 11:01 74 06/14/16 11:01 74 25 154/74 94 06/14/16 10:01 74 06/14/16 10:01 74 22 138/61 96 06/14/16 09:01 74 06/14/16 09:01 74 26 157/68 93 06/14/16 08:19 74 40 149/56 93 06/14/16 08:19 74 06/14/16 08:01 96 06/14/16 08:01 96 44 180/76 84 06/14/16 07:25 99 Nasal Cannula 4.00 06/14/16 07:01 54 20 144/61 99 06/14/16 07:01 54 06/14/16 06:35 70 06/14/16 06:05 66 06/14/16 06:01 70 25 133/80 97 06/14/16 05:01 54 16 118/60 96 06/14/16 04:01 98.0 52 19 141/63 97 06/14/16 04:00 50 06/14/16 03:35 98 35 06/14/16 03:01 52 19 131/64 98 06/14/16 02:01 74 26 140/77 95 06/14/16 02:00 74 06/14/16 01:01 74 27 138/72 97 06/14/16 00:15 98 35 06/14/16 00:01 74 06/14/16 00:01 97.8 74 26 149/74 96 06/13/16 23:01 74 27 143/75 95 06/13/16 23:01 74 06/13/16 22:01 74 06/13/16 22:01 74 21 142/69 95 06/13/16 21:01 76 27 137/66 96 06/13/16 21:01 76 06/13/16 20:01 80 06/13/16 20:01 97.9 80 38 140/65 90 06/13/16 19:30 148 30 89 06/13/16 19:30 148 06/13/16 19:11 93 Nasal Cannula 4.00 06/13/16 18:00 88 06/13/16 16:00 86 06/13/16 16:00 97.8 100 22 140/79 92 I/O 06/13/16 06/13/16 06/13/16 06/14/16 06/14/16 06/14/16 06:59 14:59 22:59 06:59 14:59 22:59 Intake Total 624 ml 480 ml 480 ml 480 ml Output Total 700 ml 600 ml 600 ml 500 ml 250 ml Balance -76 ml -120 ml -120 ml -20 ml -250 ml Intake Oral 480 ml 480 ml 480 ml 480 ml IV Total 144 ml Output Urine Total 700 ml 600 ml 600 ml 500 ml 250 ml # Voids 3 # Bowel Movements 1 Result Diagram: 06/14/1633 06/14/16532 Objective Remarks GENERAL: WBWN WM, NAD SKIN: Warm and dry. HEAD: Normocephalic. EYES: No scleral icterus. No injection or drainage. NECK: Supple, trachea midline. No JVD or lymphadenopathy. CARDIOVASCULAR: Regular rate and rhythm without murmurs, gallops, or rubs. RESPIRATORY: Breath sounds equal bilaterally. No accessory muscle use. GASTROINTESTINAL: Abdomen soft, non-tender, nondistended. MUSCULOSKELETAL: No cyanosis, or edema. BACK: Nontender without obvious deformity. No CVA tenderness. A/P Assessment and Plan COPD Exac Hypercapnoic RF, improved A.Flutter HTN PLAN: DC Solumedrol Pred 10 mg tid Cardiazem for rate controll PFT Mike Mitchell MD Jun 14, 2016 14:27
[2016-06-14] MEDS: predniSONE 10 MG TAB PO SCH (18:08)
[2016-06-14] MEDS: RESP: ALBUTEROL 2.5 MG/3 ML NEB (PRN) INH (23:53)
[2016-06-15] VITALS (46 sets, daily range): BP systolic 140–160; BP diastolic 60–85; PULSE 50–120; RESP 12–46; TEMP 97.3–98; O2SAT 88–99
[2016-06-15] MEDS: CHLORHEXIDINE GLUCONATE 2 % 1 PACK (2 CLOTHS)(taper/protocol) TOP SCH (04:00)
[2016-06-15] MEDS: DILTIAZEM HCL 60 MG TAB PO SCH ×4 (05:19→23:44)
[2016-06-15] MEDS: RESP: ALBUTEROL 2.5 MG/3 ML NEB (PRN) INH ×3 (05:37→09:36)
[2016-06-15] MEDS: RESP: ALBUTEROL 2.5 MG/IPRATROPIUM 0.5 MG NEB (SCH) INH (08:09)
[2016-06-15] MEDS: predniSONE 10 MG TAB PO SCH (09:28)
[2016-06-15] MEDS: RIVAROXABAN 20 MG TAB PO SCH (09:28)
[2016-06-15] MEDS: BUDESONIDE-FORMOTEROL 160/4.5 MCG INHALER INH SCH ×2 (09:28→23:43)
[2016-06-15] MEDS: AZITHROMYCIN 250 MG TAB PO SCH (09:28)
--- NOTE | 2016-06-15 10:37 | RADHPO ---
EXAM DATE/TIME: 06/15/2016 10:22 [facility] COMPARISON: CHEST SINGLE AP, June 12, 2016, 14:24. INDICATIONS : Short of breath MEDICAL HISTORY : Chronic obstructive pulmonary disease. Asthma SURGICAL HISTORY : None. ENCOUNTER: Initial ACUITY: 4 - 6 days PAIN SCORE: 3/10 LOCATION: Bilateral chest FINDINGS: A single view of the chest demonstrates the lungs to be symmetrically aerated without evidence of mas s, infiltrate or effusion. The cardiomediastinal contours are unremarkable. Osseous structures are intact. CONCLUSION: No acute disease. Eyal Brewer MD on June 15, 2016 at 10:35 Board Certified Radiologist. This report was verified electronically.
[2016-06-15] MEDS ORDERED: RESP: ALBUTEROL 1.25 MG/3 ML NEB (PRN) NEB (10:45)
[2016-06-15] MEDS: DIGOXIN 0.125 MG TAB PO SCH (10:58)
[2016-06-15] MEDS: methylPREDNISolone SOD SUCC 125 MG/2 ML VIAL IV PUSH SCH ×3 (12:15→23:44)
[2016-06-15 12:24] LABS: BLOOD GAS BASE EXCESS 11.8 mmol/L (-2-2); BLOOD GAS CARBOXYHEMOGLOBIN 1.5 % (0-4); BLOOD GAS HCO3 40 mmol/L (22-26); BLOOD GAS METHEMOGLOBIN 0.9 % (0-2); BLOOD GAS O2 HGB SATURATION 94 % (90-100); BLOOD GAS OXYGEN CONTENT 14.8 Vol % (12.0-20.0); BLOOD GAS PCO2 98 mmHg (38-42); BLOOD GAS PO2 92 mmHg (61-120); BLOOD GAS TOTAL HGB 11.1 G/DL (12.0-16.0)
[2016-06-15 12:25] LABS: CRITICAL VALUE YES; FIO2 35 %; OXYGEN DEVICE BIPAP; VENT SETTINGS IPAP15/EPAP5
[2016-06-15 12:26] LABS: DRAW SITE RT RADIAL; NUMBER OF ARTERIAL PUNCTURES 1; STAT NO; ULNAR PULSE PRESENT
--- NOTE | 2016-06-15 12:30 | HHI.PR ---
Subjective Remarks Patient was desatting on NC this morning. I ordered ABG which revealed acute resp acidosis with pCO2 100. Bipap was ordered and patient is currently tolerating that well. He denies dyspnea. Denies confusion. Objective Vitals Vital Signs Date Time Temp Pulse Resp B/P Pulse Ox O2 Delivery O2 Flow Rate FiO2 06/15/16 11:00 74 30 157/77 99 06/15/16 11:00 74 06/15/16 10:45 74 06/15/16 10:45 74 46 145/75 97 06/15/16 10:30 120 26 155/85 88 06/15/16 10:30 120 06/15/16 10:15 82 31 150/66 89 06/15/16 10:15 82 06/15/16 10:09 98 06/15/16 10:09 98 33 151/67 88 06/15/16 10:00 104 06/15/16 09:00 72 36 93 06/15/16 09:00 72 06/15/16 08:10 99 44.00 06/15/16 08:00 70 06/15/16 08:00 98.0 70 46 99 06/15/16 07:00 60 06/15/16 06:00 68 06/15/16 04:33 97.5 72 29 149/69 92 06/15/16 04:33 72 29 149/69 06/15/16 04:33 72 06/15/16 04:33 72 06/15/16 04:00 50 26 96 06/15/16 04:00 50 06/15/16 04:00 50 06/15/16 03:53 97 35 06/15/16 03:00 56 06/15/16 03:00 56 29 96 06/15/16 02:00 68 06/15/16 02:00 68 28 96 06/15/16 02:00 68 06/15/16 01:44 95 35 06/15/16 01:00 58 37 93 06/15/16 01:00 58 06/15/16 00:06 95 35 06/15/16 00:00 74 12 96 06/15/16 00:00 97.3 74 19 153/67 93 06/15/16 00:00 74 06/15/16 00:00 74 06/14/16 22:00 74 06/14/16 21:01 88 42 146/82 86 06/14/16 21:01 88 06/14/16 20:01 98.8 74 25 146/61 93 06/14/16 20:01 74 06/14/16 19:12 94 Nasal Cannula 4.00 06/14/16 19:01 74 35 161/66 93 06/14/16 19:01 74 06/14/16 18:00 68 06/14/16 17:01 74 06/14/16 17:01 74 22 155/65 94 06/14/16 16:50 74 06/14/16 16:01 97.5 74 20 152/64 93 06/14/16 16:01 74 06/14/16 15:50 72 06/14/16 15:01 74 37 148/60 94 06/14/16 15:01 74 06/14/16 14:50 74 06/14/16 14:01 74 23 127/48 94 06/14/16 14:00 75 06/14/16 13:01 74 24 151/61 93 I/O 06/14/16 06/14/16 06/14/16 06/15/16 06/15/16 06/15/16 07:00 15:00 23:00 07:00 15:00 23:00 Intake Total 480 ml 480 ml 480 ml 600 ml Output Total 500 ml 500 ml 450 ml 700 ml Balance -20 ml -20 ml 30 ml -100 ml Intake Oral 480 ml 480 ml 480 ml 600 ml Output Urine Total 500 ml 500 ml 450 ml 700 ml # Voids 1 Result Diagram: 06/14/16 0533 06/14/16 0533 Objective Remarks GENERAL: Well-nourished, well-developed CM patient. SKIN: Warm and dry. HEAD: Normocephalic. EYES: No scleral icterus. No injection or drainage. NECK: Supple, trachea midline. No JVD or lymphadenopathy. CARDIOVASCULAR: irregular rate and rhythm without murmurs, gallops, or rubs. RESPIRATORY: Breath sounds equal bilaterally. No accessory muscle use on bipap. Prolonged exp phase with scant wheezing. GASTROINTESTINAL: Abdomen soft, non-tender, nondistended. EXTREMITIES: No cyanosis, or edema. NEUROLOGICAL: Awake, alert, and oriented x 3. Non-focal. A/P Problem List: (1) Acute respiratory failure ICD Code: J96.00 Status: Acute (2) COPD exacerbation ICD Code: J44.1 Status: Chronic (3) Atrial flutter, paroxysmal ICD Code: I48.92 Status: Chronic Assessment and Plan 1. Acute respiratory failure with hypoxia and hypercapnia: Secondary to COPD exacerbation. ABG shows acute respiratory acidosis with PCO2 100. He started on BiPAP this morning and tolerating that well. We'll continue that through the day. Repeat an ABG. Continue Solu-Medrol, bronchodilators, and Z-Shai. Continue monitoring in ICU for now. 2. Atrial fibrillation with RVR: Heart rate is improved/controlled. Continue by mouth Cardizem and Xarelto. Appreciate cardiology recommendations. 3. Suppressed TSH. Will check free T3 and T4. 4. DVT prophylaxis: Xarelto. Problem Qualifiers (1) Acute respiratory failure: Qualified Code: J96.01 - Acute respiratory failure with hypoxia and hypercapnia Nelida Santiago MD Jun 15, 2016 12:30
[2016-06-15] MEDS: RESP: ALBUTEROL 1.25 MG/3 ML NEB (SCH) NEB ×3 (14:04→19:53)
[2016-06-15 14:10] LABS: BLOOD GAS CARBOXYHEMOGLOBIN 1.3 % (0-4); BLOOD GAS HCO3 39 mmol/L (22-26); BLOOD GAS O2 HGB SATURATION 88 % (90-100); BLOOD GAS OXYGEN CONTENT 14.3 Vol % (12.0-20.0); BLOOD GAS PCO2 101 mmHg (38-42); BLOOD GAS PO2 67 mmHg (61-120); BLOOD GAS TOTAL HGB 11.5 G/DL (12.0-16.0)
[2016-06-15 14:11] LABS: CRITICAL VALUE YES; DRAW SITE RT RADIAL; LITER FLOW 6 L/M; NUMBER OF ARTERIAL PUNCTURES 1; OXYGEN DEVICE NASAL CANNULA; STAT YES; ULNAR PULSE PRESENT
[2016-06-15 17:03] LABS: FREE T3 1.86 PG/ML (2.18-3.98); FREE T4 0.86 NG/DL (0.76-1.46)
--- NOTE | 2016-06-15 17:04 | HHI.PR ---
Subjective Remarks 61 YOWM with COPD exac, Hpercapnoic RF, Roberto.meredithtter On Cardiazem Has worsening sob and Resp acidosis Put back on BIPAP Alert, awake, sob Objective Vital Signs Vital Signs Date Time Temp Pulse Resp B/P Pulse Ox O2 Delivery O2 Flow Rate FiO2 06/15/16 16:10 95 30 06/15/16 16:01 97.4 76 28 160/79 95 06/15/16 16:00 76 06/15/16 15:00 76 06/15/16 14:25 98 30 06/15/16 14:01 74 06/15/16 14:00 70 06/15/16 13:31 70 23 144/68 97 06/15/16 13:16 74 32 154/63 93 06/15/16 13:01 72 20 145/68 98 06/15/16 13:00 72 06/15/16 12:46 74 32 147/67 97 06/15/16 12:31 74 28 148/82 96 06/15/16 12:16 74 33 147/65 96 06/15/16 12:01 97.7 72 26 149/64 98 06/15/16 12:00 70 06/15/16 12:00 70 30 98 06/15/16 11:46 74 40 149/75 97 06/15/16 11:31 74 23 140/60 99 06/15/16 11:16 74 32 148/66 91 06/15/16 11:00 74 30 157/77 99 06/15/16 11:00 74 06/15/16 11:00 74 30 157/77 99 06/15/16 10:45 74 06/15/16 10:45 74 46 145/75 97 06/15/16 10:30 120 26 155/85 88 06/15/16 10:30 120 06/15/16 10:25 96 35 06/15/16 10:15 82 31 150/66 89 06/15/16 10:15 82 06/15/16 10:09 98 06/15/16 10:09 98 33 151/67 88 06/15/16 10:00 104 06/15/16 09:00 72 36 93 06/15/16 09:00 72 06/15/16 08:10 99 44.00 06/15/16 08:00 70 06/15/16 08:00 98.0 70 46 99 06/15/16 07:00 60 06/15/16 06:00 68 06/15/16 04:33 97.5 72 29 149/69 92 06/15/16 04:33 72 29 149/69 06/15/16 04:33 72 06/15/16 04:33 72 06/15/16 04:00 50 26 96 06/15/16 04:00 50 06/15/16 04:00 50 06/15/16 03:53 97 35 06/15/16 03:00 56 06/15/16 03:00 56 29 96 06/15/16 02:00 68 06/15/16 02:00 68 28 96 06/15/16 02:00 68 06/15/16 01:44 95 35 06/15/16 01:00 58 37 93 06/15/16 01:00 58 06/15/16 00:06 95 35 06/15/16 00:00 74 12 96 06/15/16 00:00 97.3 74 19 153/67 93 06/15/16 00:00 74 06/15/16 00:00 74 06/14/16 22:00 74 06/14/16 21:01 88 42 146/82 86 06/14/16 21:01 88 06/14/16 20:01 98.8 74 25 146/61 93 06/14/16 20:01 74 06/14/16 19:12 94 Nasal Cannula 4.00 06/14/16 19:01 74 35 161/66 93 06/14/16 19:01 74 06/14/16 18:00 68 I/O 06/14/16 06/14/16 06/14/16 06/15/16 06/15/16 06/15/16 06:59 14:59 22:59 06:59 14:59 22:59 Intake Total 480 ml 480 ml 480 ml 600 ml 200 ml Output Total 500 ml 500 ml 450 ml 700 ml 300 ml Balance -20 ml -20 ml 30 ml -100 ml -100 ml Intake Oral 480 ml 480 ml 480 ml 600 ml 200 ml Output Urine Total 500 ml 500 ml 450 ml 700 ml 300 ml # Voids 1 Result Diagram: 06/14/16 0533 06/14/1633 Objective Remarks GENERAL: WBWN WM, NAD SKIN: Warm and dry. HEAD: Normocephalic. EYES: No scleral icterus. No injection or drainage. NECK: Supple, trachea midline. No JVD or lymphadenopathy. CARDIOVASCULAR: Regular rate and rhythm without murmurs, gallops, or rubs. RESPIRATORY: Breath sounds equal bilaterally. No accessory muscle use. GASTROINTESTINAL: Abdomen soft, non-tender, nondistended. MUSCULOSKELETAL: No cyanosis, or edema. BACK: Nontender without obvious deformity. No CVA tenderness. A/P Assessment and Plan COPD Exac Hypercapnoic RF A.Flutter HTN PLAN: IV Solumedrol Cardiazem for rate controll BIPAP18/5. Fi02 30% If gets worse, will need intubation DW linda Turpin, his cousin at pt's request. Mike Mitchell MD Jun 15, 2016 17:04
--- NOTE | 2016-06-15 17:59 | EKG ---
Date Performed: 06/14/2016 Time Performed: 09:47:04 PTAGE: 61 years EKG: Atrial flutter with 4:1 A-V block. Nonspecific ST-T wave changes When compared to previous tracing, patient in a borderline block. Abnormal ECG PREVIOUS TRACING : 06/12/2016 14.47 DOCTOR: Shalonda Echeverria Interpretating Date/Time 06/15/2016 17:57:51
[2016-06-16] VITALS (25 sets, daily range): BP systolic 125–174; BP diastolic 62–86; PULSE 54–82; RESP 19–32; TEMP 97.6–98.5; O2SAT 89–96
[2016-06-16] MEDS: CHLORHEXIDINE GLUCONATE 2 % 1 PACK (2 CLOTHS)(taper/protocol) TOP SCH (04:00)
[2016-06-16] MEDS: methylPREDNISolone SOD SUCC 125 MG/2 ML VIAL IV PUSH SCH ×4 (05:45→23:24)
[2016-06-16] MEDS: DILTIAZEM HCL 60 MG TAB PO SCH (05:46)
[2016-06-16] MEDS: RESP: ALBUTEROL 1.25 MG/3 ML NEB (SCH) NEB ×4 (07:19→19:28)
[2016-06-16] MEDS: DIGOXIN 0.125 MG TAB PO SCH (08:48)
[2016-06-16] MEDS: BUDESONIDE-FORMOTEROL 160/4.5 MCG INHALER INH SCH ×2 (08:48→20:11)
[2016-06-16] MEDS: AZITHROMYCIN 250 MG TAB PO SCH (08:48)
[2016-06-16] MEDS: RIVAROXABAN 20 MG TAB PO SCH (08:51)
[2016-06-16 12:19] LABS: BLOOD GAS BASE EXCESS 16.3 mmol/L (-2-2); BLOOD GAS CARBOXYHEMOGLOBIN 1.7 % (0-4); BLOOD GAS HCO3 42 mmol/L (22-26); BLOOD GAS METHEMOGLOBIN 0.9 % (0-2); BLOOD GAS O2 HGB SATURATION 92 % (90-100); BLOOD GAS OXYGEN CONTENT 14.9 Vol % (12.0-20.0); BLOOD GAS PCO2 71 mmHg (38-42); BLOOD GAS PO2 69 mmHg (61-120); BLOOD GAS TOTAL HGB 11.5 G/DL (12.0-16.0); CRITICAL VALUE YES; DRAW SITE RT RADIAL; LITER FLOW 3 L/M; NUMBER OF ARTERIAL PUNCTURES 1; OXYGEN DEVICE NASAL CANNULA; STAT NO; ULNAR PULSE PRESENT
[2016-06-16] MEDS: DILTIAZEM-CD 240 MG CAP ER PO SCH (13:39)
--- NOTE | 2016-06-16 15:34 | HHI.PR ---
Subjective Remarks Patient states his breathing is better. So wheeze. He is on 3 L but desaturates easily per the nurse. Objective Vitals Vital Signs Date Time Temp Pulse Resp B/P Pulse Ox O2 Delivery O2 Flow Rate FiO2 06/16/16 14:00 78 06/16/16 12:00 98.5 78 28 165/78 90 06/16/16 12:00 78 06/16/16 10:03 91 30 06/16/16 10:00 66 25 153/78 92 06/16/16 10:00 66 06/16/16 09:00 60 19 162/76 95 06/16/16 08:15 86 Bi-Pap 30 06/16/16 08:00 78 06/16/16 08:00 97.9 78 20 151/77 96 06/16/16 07:45 92 30 06/16/16 07:19 94 Nasal Cannula 3.00 06/16/16 07:00 91 Nasal Cannula 4.00 06/16/16 06:00 76 06/16/16 05:40 93 Nasal Cannula 4.00 06/16/16 04:10 93 30 06/16/16 04:00 54 06/16/16 04:00 97.8 54 21 125/62 92 06/16/16 02:00 68 06/16/16 01:45 93 Bi-Pap 30 06/16/16 01:45 93 30 06/16/16 01:35 81 Bi-Pap 30 06/16/16 01:07 98 Nasal Cannula 3.00 06/16/16 00:19 97.6 76 28 174/78 93 06/16/16 00:00 76 06/15/16 23:55 98 Nasal Cannula 4.00 06/15/16 23:45 95 Nasal Cannula 6.00 06/15/16 22:10 94 30 06/15/16 22:00 64 06/15/16 20:01 97.6 64 29 148/76 99 06/15/16 20:00 62 06/15/16 19:55 94 30 06/15/16 19:15 93 Bi-Pap 30 06/15/16 18:00 78 06/15/16 16:10 95 30 06/15/16 16:01 97.4 76 28 160/79 95 06/15/16 16:00 76 I/O 1/2/06/15/16 06/15/16 06/16/16 06/16/16 06/16/16 07:00 15:00 23:00 07:00 15:00 23:00 Intake Total 600 ml 200 ml 120 ml Output Total 700 ml 600 ml 675 ml Balance -100 ml -400 ml -555 ml Intake Oral 600 ml 200 ml 120 ml IV Total 0 ml 0 ml Output Urine Total 700 ml 600 ml 675 ml # Bowel Movements 0 0 Result Diagram: 06/14/1653206/14/16532 Objective Remarks GENERAL: Well-nourished, well-developed CM patient. SKIN: Warm and dry. HEAD: Normocephalic. EYES: No scleral icterus. No injection or drainage. NECK: Supple, trachea midline. No JVD or lymphadenopathy. CARDIOVASCULAR: irregular rate and rhythm without murmurs, gallops, or rubs. RESPIRATORY: Breath sounds equal bilaterally. Prolonged exp phase with slightly improved air movement, expiratory wheezing. GASTROINTESTINAL: Abdomen soft, non-tender, nondistended. EXTREMITIES: No cyanosis, or edema. NEUROLOGICAL: Awake, alert, and oriented x 3. Non-focal. A/P Problem List: (1) Acute respiratory failure ICD Code: J96.00 Status: Acute (2) COPD exacerbation ICD Code: J44.1 Status: Chronic (3) Atrial flutter, paroxysmal ICD Code: I48.92 Status: Chronic Assessment and Plan 1. Acute respiratory failure with hypoxia and hypercapnia: Secondary to COPD exacerbation. ABG is improved this morning. We'll continue monitoring in ICU. BiPAP at night. Continue Solu-Medrol, bronchodilators, and Z-Shai. Appreciate pulmonology input. 2. Atrial fibrillation with RVR: Heart rate is improved/controlled. Continue by mouth Cardizem and Xarelto. Appreciate cardiology recommendations. 3. Suppressed TSH. free T3 slightly low and free T4 is normal. Likely clinically euthyroid. Recommend repeat thyroid studies as outpatient with primary care physician. 4. DVT prophylaxis: Xarelto. Problem Qualifiers (1) Acute respiratory failure: Qualified Code: J96.01 - Acute respiratory failure with hypoxia and hypercapnia Nelida Santiago MD Jun 16, 2016 15:34
--- NOTE | 2016-06-16 18:31 | HHI.PR ---
Subjective Remarks 61 YOWM with COPD exac, Hpercapnoic Aníbal VALLEJO On Cardiazem Has worsening sob and Resp acidosis Alert, awake, sob Weaned to NC Desaturates Objective Vital Signs Vital Signs Date Time Temp Pulse Resp B/P Pulse Ox O2 Delivery O2 Flow Rate FiO2 06/16/16 16:00 78 06/16/16 16:00 98.2 78 24 167/83 92 06/16/16 14:00 78 06/16/16 12:30 92 Nasal Cannula 3.00 06/16/16 12:00 98.5 78 28 165/78 90 06/16/16 12:00 78 06/16/16 10:03 91 30 06/16/16 10:00 66 25 153/78 92 06/16/16 10:00 66 06/16/16 09:00 60 19 162/76 95 06/16/16 08:15 86 Bi-Pap 30 06/16/16 08:00 78 06/16/16 08:00 97.9 78 20 151/77 96 06/16/16 07:45 92 30 06/16/16 07:19 94 Nasal Cannula 3.00 06/16/16 07:00 91 Nasal Cannula 4.00 06/16/16 06:00 76 06/16/16 05:40 93 Nasal Cannula 4.00 06/16/16 04:10 93 30 06/16/16 04:00 54 06/16/16 04:00 97.8 54 21 125/62 92 06/16/16 02:00 68 06/16/16 01:45 93 Bi-Pap 30 06/16/16 01:45 93 30 06/16/16 01:35 81 Bi-Pap 30 06/16/16 01:07 98 Nasal Cannula 3.00 06/16/16 00:19 97.6 76 28 174/78 93 06/16/16 00:00 76 06/15/16 23:55 98 Nasal Cannula 4.00 06/15/16 23:45 95 Nasal Cannula 6.00 06/15/16 22:10 94 30 06/15/16 22:00 64 06/15/16 20:01 97.6 64 29 148/76 99 06/15/16 20:00 62 06/15/16 19:55 94 30 06/15/16 19:15 93 Bi-Pap 30 I/O 06/15/16 06/15/16 06/15/16 06/16/16 06/16/16 06/16/16 07:00 15:00 23:00 07:00 15:00 23:00 Intake Total 600 ml 200 ml 120 ml 720 ml Output Total 700 ml 600 ml 675 ml 400 ml Balance -100 ml -400 ml -555 ml 320 ml Intake Oral 600 ml 200 ml 120 ml 720 ml IV Total 0 ml 0 ml 0 ml Output Urine Total 700 ml 600 ml 675 ml 400 ml # Bowel Movements 0 0 0 Result Diagram: 06/14/1653206/14/16532 Objective Remarks GENERAL: WBWN WM, NAD SKIN: Warm and dry. HEAD: Normocephalic. EYES: No scleral icterus. No injection or drainage. NECK: Supple, trachea midline. No JVD or lymphadenopathy. CARDIOVASCULAR: Regular rate and rhythm without murmurs, gallops, or rubs. RESPIRATORY: Breath sounds equal bilaterally. No accessory muscle use. GASTROINTESTINAL: Abdomen soft, non-tender, nondistended. MUSCULOSKELETAL: No cyanosis, or edema. BACK: Nontender without obvious deformity. No CVA tenderness. A/P Assessment and Plan COPD Exac Hypercapnoic RF A.Flutter HTN PLAN: IV Solumedrol Cardiazem for rate controll BIPAP18/5. Fi02 30% If gets worse, will need intubation DW linda Turpin, his cousin at pt's request. CT chest wo contrast Mike Mitchell MD Jun 16, 2016 18:31
--- NOTE | 2016-06-16 22:55 | RADHPO ---
EXAM DATE/TIME: 06/16/2016 22:04 [facility] COMPARISON: No previous studies available for comparison. INDICATIONS : Evaluate for chronic airway obstruction. RADIATION DOSE: 21.37 CTDIvol (mGy) MEDICAL HISTORY : Chronic obstructive pulmonary disease. SURGICAL HISTORY : None. ENCOUNTER: Initial ACUITY: 1 day PAIN SCALE: 0/10 LOCATION: chest TECHNIQUE: Volumetric scanning of the chest was performed. Using automated exposure control and adjustment of t he mA and/or kV according to patient size, radiation dose was kept as low as reasonably achievable to obtain optimal diagnostic quality images. FINDINGS: LUNGS: Centrilobular emphysematous changes seen involving the apices bilaterally. There is no consolidation or pneumothorax. No concerning pulmonary nodule is visualized. PLEURAE: There is no pleural thickening or pleural effusion. MEDIASTINUM: The heart is normal in size. Coronary artery atherosclerotic calcifications are noted. The aorta and pulmonary arteries are normal in caliber. Tiny anterior mediastinal lymph nodes are seen without minnie opathy. AXILLAE: Within normal limits. No lymphadenopathy. MUSCULOSKELETAL: Within normal limits for patient age. MISCELLANEOUS: The visualized upper abdominal organs demonstrate no acute abnormality. CONCLUSION: 1. Emphysematous changes. 2. No acute infiltrate or effusion. Joshua Cabezas Jr., MD on June 16, 2016 at 22:50 Board Certified Radiologist. This report was verified electronically.
[2016-06-16] MEDS: ACETAMINOPHEN/HYDROcodone 325 MG/10 MG TAB PO PRN (23:23)
[2016-06-17] VITALS (21 sets, daily range): BP systolic 140–163; BP diastolic 58–94; PULSE 52–84; RESP 13–28; TEMP 97.5–98.5; O2SAT 90–98
--- NOTE | 2016-06-17 00:03 | EKG ---
Date Performed: 06/15/2016 Time Performed: 10:35:34 PTAGE: 61 years EKG: Atrial flutter with 4:1 A-V block Inferior T wave changes are nonspecific Abnormal ECG PREVIOUS TRACING : 06/14/2016 09.47 DOCTOR: Mikael Henson Interpretating Date/Time 06/16/2016 23:52:34
[2016-06-17] MEDS: CHLORHEXIDINE GLUCONATE 2 % 1 PACK (2 CLOTHS)(taper/protocol) TOP SCH (04:00)
[2016-06-17] MEDS: methylPREDNISolone SOD SUCC 125 MG/2 ML VIAL IV PUSH SCH ×3 (05:46→17:27)
[2016-06-17] MEDS: SODIUM CHLORIDE 0.9% FLUSH 5 ML FLUSH IVF PRN (05:46)
[2016-06-17] MEDS: RESP: ALBUTEROL 1.25 MG/3 ML NEB (SCH) NEB ×4 (07:21→19:16)
[2016-06-17] MEDS: BUDESONIDE-FORMOTEROL 160/4.5 MCG INHALER INH SCH ×2 (08:33→22:57)
[2016-06-17] MEDS: DIGOXIN 0.125 MG TAB PO SCH (08:33)
[2016-06-17] MEDS: RIVAROXABAN 20 MG TAB PO SCH (08:33)
[2016-06-17] MEDS: DILTIAZEM-CD 240 MG CAP ER PO SCH (08:33)
[2016-06-17] MEDS: AZITHROMYCIN 250 MG TAB PO SCH (08:33)
--- NOTE | 2016-06-17 10:20 | RSPPFT ---
DATE OF PROCEDURE: 06/14/16 COMMENTS: Spirometry shows FVC of 1.18 at 28% of predicted, FVC of 0.4 at 15%, FEV1/FVC ratio is decreased. Flow is decreased at FEF 25, FEF 75 and FEF 25-75. There is a good response after acutely inhaled bronchodilator treatment. Flow volume loop indicates an obstructive pattern. IMPRESSION: 1. Very severe obstructive lung disease. 2. Good response to bronchodilator treatment.
--- NOTE | 2016-06-17 12:52 | HHI.PR ---
Subjective Remarks Patient warmed BiPAP for 6 hours last night and states that his breathing feels 75% better compared to admission. He is having several PVCs. Objective Vitals Vital Signs Date Time Temp Pulse Resp B/P Pulse Ox O2 Delivery O2 Flow Rate FiO2 06/17/16 07:25 92 Nasal Cannula 3.00 06/17/16 06:00 78 06/17/16 05:47 92 Nasal Cannula 3.00 06/17/16 05:02 54 13 147/71 92 06/17/16 04:02 97.8 52 14 140/72 93 06/17/16 04:00 52 06/17/16 03:55 92 30 06/17/16 03:14 78 26 160/91 92 06/17/16 02:02 54 28 153/71 93 06/17/16 02:00 54 06/17/16 02:00 93 30 06/17/16 01:02 78 26 140/94 91 06/17/16 00:02 97.5 66 17 149/72 96 06/17/16 00:00 66 06/17/16 00:00 92 Bi-Pap 30 06/16/16 23:25 94 30 06/16/16 23:02 78 20 163/82 94 06/16/16 22:01 78 32 160/83 90 06/16/16 22:00 78 06/16/16 21:00 78 26 163/86 91 06/16/16 20:00 97.6 78 28 166/83 89 06/16/16 20:00 82 06/16/16 20:00 92 Nasal Cannula 3.00 06/16/16 19:30 92 Nasal Cannula 3.00 06/16/16 19:00 78 22 165/79 93 06/16/16 18:00 80 06/16/16 16:00 78 06/16/16 16:00 98.2 78 24 167/83 92 06/16/16 14:00 78 I/O 06/16/16 06/16/16 06/16/16 06/17/16 06/17/16 06/17/16 07:00 15:00 23:00 07:00 15:00 23:00 Intake Total 120 ml 960 ml 200 ml Output Total 675 ml 900 ml 750 ml 400 ml Balance -555 ml 60 ml -550 ml -400 ml Intake Oral 120 ml 960 ml 200 ml IV Total 0 ml 0 ml 0 ml Output Urine Total 675 ml 900 ml 750 ml 400 ml # Bowel Movements 0 0 0 Result Diagram: 06/14/1653206/14/16532 Objective Remarks GENERAL: Well-nourished, well-developed CM patient. SKIN: Warm and dry. HEAD: Normocephalic. EYES: No scleral icterus. No injection or drainage. NECK: Supple, trachea midline. No JVD or lymphadenopathy. CARDIOVASCULAR: irregular rate and rhythm without murmurs, gallops, or rubs. RESPIRATORY: Breath sounds equal bilaterally. Prolonged exp phase with improved air movement, end expiratory wheezing. Sats 88% on 3 L nasal cannula. GASTROINTESTINAL: Abdomen soft, non-tender, nondistended. EXTREMITIES: No cyanosis, or edema. NEUROLOGICAL: Awake, alert, and oriented x 3. Non-focal. A/P Problem List: (1) Acute respiratory failure ICD Code: J96.00 Status: Acute (2) COPD exacerbation ICD Code: J44.1 Status: Chronic (3) Atrial flutter, paroxysmal ICD Code: I48.92 Status: Chronic Assessment and Plan 1. Acute respiratory failure with hypoxia and hypercapnia: Secondary to COPD exacerbation. Improving. Transfer to intermediate care. Continue BiPAP at night. Continue Solu-Medrol, bronchodilators, and Z-Shai. Chest CT reveals emphysematous changes. Appreciate pulmonology input. 2. Atrial fibrillation with RVR: Heart rate is improved/controlled. Continue by mouth Cardizem and Xarelto. Appreciate cardiology recommendations. 3. Suppressed TSH. free T3 slightly low and free T4 is normal. Likely clinically euthyroid. Recommend repeat thyroid studies as outpatient with primary care physician. 4. DVT prophylaxis: Xarelto. Problem Qualifiers (1) Acute respiratory failure: Qualified Code: J96.01 - Acute respiratory failure with hypoxia and hypercapnia Nelida Santiago MD Jun 17, 2016 12:52
[2016-06-17] MEDS: ACETAMINOPHEN/HYDROcodone 325 MG/5 MG TAB PO PRN (13:25)
[2016-06-17] MEDS: LIDOCAINE VISCOUS 2% SOLN 15 ML UDC SWISH-SWAL PRN ×2 (15:05→23:05)
--- NOTE | 2016-06-17 19:23 | HHI.PR ---
Subjective Remarks 61 YOWM with COPD exac, Hpercapnoic Aníbal VALLEJO On Cardiazem Has worsening sob and Resp acidosis Alert, awake, sob Weaned to NC Desaturates Used CPAP last night CT chest emphysema Objective Vital Signs Vital Signs Date Time Temp Pulse Resp B/P Pulse Ox O2 Delivery O2 Flow Rate FiO2 06/17/16 19:15 94 Nasal Cannula 3.50 06/17/16 18:00 78 06/17/16 16:00 97.9 76 18 163/67 91 06/17/16 16:00 91 Nasal Cannula 3.00 06/17/16 16:00 76 06/17/16 14:00 80 23 157/73 91 06/17/16 14:00 80 06/17/16 12:00 80 06/17/16 12:00 98.1 80 22 147/58 90 06/17/16 12:00 91 Nasal Cannula 3.00 06/17/16 10:00 84 06/17/16 10:00 78 18 144/75 93 06/17/16 08:00 92 Nasal Cannula 3.00 06/17/16 08:00 80 06/17/16 08:00 97.9 78 14 140/70 91 06/17/16 07:25 92 Nasal Cannula 3.00 06/17/16 06:00 78 06/17/16 05:47 92 Nasal Cannula 3.00 06/17/16 05:02 54 13 147/71 92 06/17/16 04:02 97.8 52 14 140/72 93 06/17/16 04:00 52 06/17/16 03:55 92 30 06/17/16 03:14 78 26 160/91 92 06/17/16 02:02 54 28 153/71 93 06/17/16 02:00 54 06/17/16 02:00 93 30 06/17/16 01:02 78 26 140/94 91 06/17/16 00:02 97.5 66 17 149/72 96 06/17/16 00:00 66 06/17/16 00:00 92 Bi-Pap 30 06/16/16 23:25 94 30 06/16/16 23:02 78 20 163/82 94 06/16/16 22:01 78 32 160/83 90 06/16/16 22:00 78 06/16/16 21:00 78 26 163/86 91 06/16/16 20:00 97.6 78 28 166/83 89 06/16/16 20:00 82 06/16/16 20:00 92 Nasal Cannula 3.00 06/16/16 19:30 92 Nasal Cannula 3.00 I/O 06/16/16 06/16/16 06/16/16 06/17/16 06/17/16 06/17/16 07:00 15:00 23:00 07:00 15:00 23:00 Intake Total 120 ml 960 ml 200 ml 720 ml Output Total 675 ml 900 ml 750 ml 800 ml Balance -555 ml 60 ml -550 ml -80 ml Intake Oral 120 ml 960 ml 200 ml 720 ml IV Total 0 ml 0 ml 0 ml 0 ml Output Urine Total 675 ml 900 ml 750 ml 800 ml # Bowel Movements 0 0 0 0 Result Diagram: 06/14/1653206/14/16532 Objective Remarks GENERAL: WBWN WM, NAD SKIN: Warm and dry. HEAD: Normocephalic. EYES: No scleral icterus. No injection or drainage. NECK: Supple, trachea midline. No JVD or lymphadenopathy. CARDIOVASCULAR: Regular rate and rhythm without murmurs, gallops, or rubs. RESPIRATORY: Breath sounds equal bilaterally. No accessory muscle use. GASTROINTESTINAL: Abdomen soft, non-tender, nondistended. MUSCULOSKELETAL: No cyanosis, or edema. BACK: Nontender without obvious deformity. No CVA tenderness. A/P Assessment and Plan COPD Exac Hypercapnoic RF A.Flutter HTN PLAN: IV Solumedrol Cardiazem for rate controll Supplement 02 to keep sat >90% BIPAP PRN Will see him intermittentally Stable to tr to floor in Mike Barker MD Jun 17, 2016 19:23
[2016-06-17] MEDS: ACETAMINOPHEN/HYDROcodone 325 MG/10 MG TAB PO PRN (22:58)
[2016-06-18] VITALS (21 sets, daily range): BP systolic 135–178; BP diastolic 71–90; PULSE 42–88; RESP 13–27; TEMP 97.4–98.1; O2SAT 89–97
[2016-06-18] MEDS: SODIUM CHLORIDE 0.9% FLUSH 5 ML FLUSH IVF PRN ×3 (00:34→19:32)
[2016-06-18] MEDS: methylPREDNISolone SOD SUCC 125 MG/2 ML VIAL IV PUSH SCH ×3 (00:34→10:28)
[2016-06-18 04:49] LABS: HEMATOCRIT 37.6 % (39.0-51.0); MEAN CELL VOLUME 82.6 FL (80.0-100.0); MEAN CORPUSCULAR HEMOGLOBIN 26.9 PG (27.0-34.0); MEAN CORPUSCULAR HGB CONC 32.6 % (32.0-36.0); PLATELET COUNT 198 TH/MM3 (150-450); RED BLOOD COUNT 4.55 MIL/MM3 (4.50-5.90); RED CELL DISTRIBUTION WIDTH 14.9 % (11.6-17.2); REVIEW FLAG FINAL; WHITE BLOOD COUNT 8.2 TH/MM3 (4.0-11.0)
[2016-06-18] MEDS: RESP: ALBUTEROL 1.25 MG/3 ML NEB (SCH) NEB ×4 (07:36→20:39)
[2016-06-18] MEDS: DIGOXIN 0.125 MG TAB PO SCH (10:28)
[2016-06-18] MEDS: RIVAROXABAN 20 MG TAB PO SCH (10:28)
[2016-06-18] MEDS: DILTIAZEM-CD 240 MG CAP ER PO SCH (10:28)
[2016-06-18] MEDS: BUDESONIDE-FORMOTEROL 160/4.5 MCG INHALER INH SCH ×2 (10:29→20:08)
--- NOTE | 2016-06-18 17:00 | EC ---
Study Study Date:06/18/2016 STUDY CONCLUSIONS SUMMARY - Left ventricle: The cavity size was normal. Wall thickness was normal. Systolic function was normal. The estimated ejection fraction was in the range of 50% to 55%. Wall motion was normal; there were no regional wall motion abnormalities. - Mitral valve: Mild regurgitation. - Tricuspid valve: Mild regurgitation. - Pulmonary arteries: PA peak pressure: 41mm Hg (S). If LV function is below 40, please consider prescribing an ACEI or ARB or document rationale for non-use. PROCEDURE DATA STUDY STATUS: Elective. Procedure: Transthoracic echocardiography. Image quality was good. Scanning was performed from the parasternal, apical, and subcostal acoustic windows. Study completion: The patient tolerated the procedure well. Transthoracic echocardiography. M-mode, complete 2D, complete spectral Doppler, and color Doppler. Patient status: Inpatient. CARDIAC ANATOMY LEFT VENTRICLE: The cavity size was normal. Wall thickness was normal. Systolic function was normal. The estimated ejection fraction was in the range of 50% to 55%. Wall motion was normal; there were no regional wall motion abnormalities. AORTIC VALVE: Trileaflet; normal thickness leaflets. Doppler: Transvalvular velocity was within the normal range. There was no stenosis. No regurgitation. AORTA: Aortic root: The aortic root was normal in size. MITRAL VALVE: Structurally normal valve. Doppler: Transvalvular velocity was within the normal range. There was no evidence for stenosis. Mild regurgitation. LEFT ATRIUM: The atrium was normal in size. RIGHT VENTRICLE: The cavity size was normal. Wall thickness was normal. PULMONIC VALVE: Doppler: Transvalvular velocity was within the normal range. There was no evidence for stenosis. No regurgitation. TRICUSPID VALVE: Structurally normal valve. Doppler: Transvalvular velocity was within the normal range. Mild regurgitation. PULMONARY ARTERY: The main pulmonary artery was normal-sized. Systolic pressure was within the normal range. RIGHT ATRIUM: The atrium was normal in size. PERICARDIUM: There was no pericardial effusion. SYSTEMIC VEINS: Inferior vena cava: The vessel was normal in size. BASIC MEASUREMENTS ADULT Normal Left ventricle LV internal dimension, ED, chordal level, *52.7 mm 43-52 PLAX LV internal dimension, ES, chordal level, *41 mm 23-38 PLAX Fractional shortening, chordal level, PLAX *22 % >29 LV posterior wall thickness, ED 17.7 mm IVS/LVPW ratio, ED 0.89 <1.3 Ventricular septum Septal thickness, ED 15.8 mm Aortic valve Leaflet separation 26 mm 15-26 Right ventricle RV internal dimension, ED, PLAX *44.8 mm 19-38 BASIC MEASUREMENTS ADULT Normal Aortic valve Leaflet separation 26 mm 15-26 Aorta Root diameter, ED *38 mm 20-37 Left atrium Anterior-posterior dimension, ES *47 mm 19-40 LA/aortic root ratio 1.24 DOPPLER MEASUREMENTS ADULT Normal Main pulmonary artery Pressure, S *41 mm Hg =30 Aortic valve Regurgitant velocity, ED 404 cm/s Regurgitant deceleration 2070 cm/s^2 Regurgitant pressure half-time 573 ms Regurgitant gradient, ED 65 mm Hg Tricuspid valve Regurgitant peak velocity 280 cm/s Peak RV-RA gradient, S 31 mm Hg Maximal regurgitant velocity 280 cm/s Systemic veins Estimated CVP 10 mm Hg Right ventricle RV pressure, S *41 mm Hg <30 LEGEND: Mean values are shown as u=mean value. Asterisk (*) servin values outside specified normal range. Prepared and signed by Alexey Saldivar [id number]
--- NOTE | 2016-06-18 17:14 | HHI.PR ---
Subjective Remarks Patient's heart rate was running lower last night. Today he is on 4 L nasal cannula but desats easily. The patient denies shortness of breath however. Objective Vitals Vital Signs Date Time Temp Pulse Resp B/P Pulse Ox O2 Delivery O2 Flow Rate FiO2 06/18/16 14:00 76 06/18/16 12:00 92 Nasal Cannula 4.00 06/18/16 12:00 78 06/18/16 11:57 97.4 80 13 135/76 93 06/18/16 11:00 92 Nasal Cannula 4.00 06/18/16 10:22 92 Nasal Cannula 4.00 06/18/16 09:30 90 Bi-Pap 30 06/18/16 09:00 93 30 06/18/16 08:00 80 06/18/16 08:00 98.1 80 27 155/74 89 06/18/16 08:00 92 Nasal Cannula 3.00 06/18/16 07:36 92 Nasal Cannula 4.00 06/18/16 06:00 52 06/18/16 04:30 93 Nasal Cannula 3.00 06/18/16 04:00 44 06/18/16 04:00 97.9 65 20 169/71 92 06/18/16 02:00 42 06/18/16 01:14 92 30 06/18/16 00:00 92 Bi-Pap 30 06/18/16 00:00 97.7 06/18/16 00:00 56 06/17/16 23:30 98 30 06/17/16 20:00 92 Nasal Cannula 3.00 06/17/16 20:00 80 06/17/16 20:00 98.5 06/17/16 19:15 94 Nasal Cannula 3.50 06/17/16 18:00 78 I/O 06/17/16 06/17/16 06/17/16 06/18/16 06/18/16 06/18/16 07:00 15:00 23:00 07:00 15:00 23:00 Intake Total 200 ml 720 ml 240 ml 240 ml 345 ml Output Total 750 ml 800 ml 625 ml 700 ml 200 ml Balance -550 ml -80 ml -385 ml -460 ml 145 ml Intake Oral 200 ml 720 ml 240 ml 240 ml 345 ml IV Total 0 ml 0 ml Output Urine Total 750 ml 800 ml 625 ml 700 ml 200 ml # Voids 2 2 # Bowel Movements 0 0 0 0 0 Result Diagram: 06/18/16 0430 06/14/16 0533 Objective Remarks GENERAL: Well-nourished, well-developed CM patient. SKIN: Warm and dry. HEAD: Normocephalic. EYES: No scleral icterus. No injection or drainage. NECK: Supple, trachea midline. No JVD or lymphadenopathy. CARDIOVASCULAR: irregular rate and rhythm without murmurs, gallops, or rubs. RESPIRATORY: Breath sounds equal bilaterally. Prolonged exp phase with improved air movement, end expiratory wheezing. Sats 88% on 3 L nasal cannula. GASTROINTESTINAL: Abdomen soft, non-tender, nondistended. EXTREMITIES: No cyanosis, or edema. NEUROLOGICAL: Awake, alert, and oriented x 3. Non-focal. A/P Problem List: (1) Acute respiratory failure ICD Code: J96.00 Status: Acute (2) COPD exacerbation ICD Code: J44.1 Status: Chronic (3) Atrial flutter, paroxysmal ICD Code: I48.92 Status: Chronic Assessment and Plan 1. Acute respiratory failure with hypoxia and hypercapnia: Secondary to COPD exacerbation. Slow improvement. Continue BiPAP at night. Continue Solu- Medrol, bronchodilators, and Z-Shai. Chest CT revealed emphysematous changes. Appreciate pulmonology input. 2. Atrial fibrillation with RVR: Heart rate is improved/controlled. Heart rate is running lower last night. Continue by mouth Cardizem with holding parameters and Xarelto. Appreciate cardiology recommendations. 3. Suppressed TSH. free T3 slightly low and free T4 is normal. Likely clinically euthyroid. Recommend repeat thyroid studies as outpatient with primary care physician. 4. DVT prophylaxis: Xarelto. Problem Qualifiers (1) Acute respiratory failure: Qualified Code: J96.01 - Acute respiratory failure with hypoxia and hypercapnia Nelida Santiago MD Jun 18, 2016 17:14
--- NOTE | 2016-06-18 19:24 | HHI.PR ---
Subjective Remarks 61 YOWM with COPD exac, Hpercapnoic YONI, Aníbal On Cardiazem Has worsening sob and Resp acidosis Alert, awake, sob Weaned to [place] CT chest emphysema Family at Objective Vital Signs Vital Signs Date Time Temp Pulse Resp B/P Pulse Ox O2 Delivery O2 Flow Rate FiO2 06/18/16 18:28 80 06/18/16 16:08 80 25 160/86 89 06/18/16 16:00 93 Nasal Cannula 4.00 06/18/16 16:00 88 06/18/16 14:00 76 06/18/16 12:00 92 Nasal Cannula 4.00 06/18/16 12:00 78 06/18/16 11:57 97.4 80 13 135/76 93 06/18/16 11:00 92 Nasal Cannula 4.00 06/18/16 10:22 92 Nasal Cannula 4.00 06/18/16 09:30 90 Bi-Pap 30 06/18/16 09:00 93 30 06/18/16 08:00 80 06/18/16 08:00 98.1 80 27 155/74 89 06/18/16 08:00 92 Nasal Cannula 3.00 06/18/16 07:36 92 Nasal Cannula 4.00 06/18/16 06:00 52 06/18/16 04:30 93 Nasal Cannula 3.00 06/18/16 04:00 44 06/18/16 04:00 97.9 65 20 169/71 92 06/18/16 02:00 42 06/18/16 01:14 92 30 06/18/16 00:00 92 Bi-Pap 30 06/18/16 00:00 97.7 06/18/16 00:00 56 06/17/16 23:30 98 30 06/17/16 20:00 92 Nasal Cannula 3.00 06/17/16 20:00 80 06/17/16 20:00 98.5 I/O 06/17/16 06/17/16 06/17/16 06/18/16 06/18/16 06/18/16 06:59 14:59 22:59 06:59 14:59 22:59 Intake Total 200 ml 720 ml 240 ml 240 ml 345 ml Output Total 750 ml 800 ml 625 ml 700 ml 200 ml Balance -550 ml -80 ml -385 ml -460 ml 145 ml Intake Oral 200 ml 720 ml 240 ml 240 ml 345 ml IV Total 0 ml 0 ml Output Urine Total 750 ml 800 ml 625 ml 700 ml 200 ml # Voids 2 2 # Bowel Movements 0 0 0 0 0 Result Diagram: 06/18/160 06/14/16 0533 Objective Remarks GENERAL: WBWN WM, NAD SKIN: Warm and dry. HEAD: Normocephalic. EYES: No scleral icterus. No injection or drainage. NECK: Supple, trachea midline. No JVD or lymphadenopathy. CARDIOVASCULAR: Regular rate and rhythm without murmurs, gallops, or rubs. RESPIRATORY: Breath sounds equal bilaterally. No accessory muscle use. GASTROINTESTINAL: Abdomen soft, non-tender, nondistended. MUSCULOSKELETAL: No cyanosis, or edema. BACK: Nontender without obvious deformity. No CVA tenderness. A/P Assessment and Plan COPD Exac Hypercapnoic RF A.Flutter HTN PLAN: Decrease Solumedrol Cardiazem for rate controll Supplement 02 to keep sat >90% BIPAP PRN DW pt and Family Echo result pending Mike Mitchell MD Jun 18, 2016 19:24
[2016-06-18] MEDS: methylPREDNISolone SOD SUCC 40 MG/1 ML VIAL IV PUSH SCH (19:32)
[2016-06-18 21:26] LABS: BASOPHIL % 0.5 % (0.0-2.0); EOSINOPHIL % 0.1 % (0.0-4.0); HEMATOCRIT 39.1 % (39.0-51.0); HEMO FLAGS DIFF FINAL; LYMPH % 3.2 % (9.0-44.0); LYMPHOCYTE # 0.3 TH/MM3 (1.0-4.8); MEAN CELL VOLUME 82.7 FL (80.0-100.0); MEAN CORPUSCULAR HEMOGLOBIN 26.9 PG (27.0-34.0); MEAN CORPUSCULAR HGB CONC 32.5 % (32.0-36.0); MONO % 5.9 % (0.0-8.0); NEUT % 90.3 % (16.0-70.0); PLATELET COUNT 221 TH/MM3 (150-450); RED BLOOD COUNT 4.73 MIL/MM3 (4.50-5.90); WHITE BLOOD COUNT 9.9 TH/MM3 (4.0-11.0)
[2016-06-18 21:38] LABS: POTASSIUM 3.7 MEQ/L (3.5-5.1)
[2016-06-18 21:41] LABS: BICARBONATE 38.3 MEQ/L (21.0-32.0); MAGNESIUM 2.1 MG/DL (1.5-2.5)
[2016-06-18 21:59] LABS: DIGOXIN 0.3 NG/ML (0.8-2.0)
[2016-06-18] MEDS: ACETAMINOPHEN/HYDROcodone 325 MG/10 MG TAB PO PRN (22:52)
[2016-06-19] VITALS (17 sets, daily range): BP systolic 151–176; BP diastolic 73–85; PULSE 50–84; RESP 16–26; TEMP 97.3–98.2; O2SAT 89–93
[2016-06-19] MEDS: methylPREDNISolone SOD SUCC 40 MG/1 ML VIAL IV PUSH SCH ×3 (01:03→12:57)
[2016-06-19] MEDS: SODIUM CHLORIDE 0.9% FLUSH 5 ML FLUSH IVF PRN ×2 (01:04→06:57)
[2016-06-19] MEDS: RESP: ALBUTEROL 1.25 MG/3 ML NEB (SCH) NEB ×4 (07:37→18:58)
[2016-06-19] MEDS: BUDESONIDE-FORMOTEROL 160/4.5 MCG INHALER INH SCH ×2 (09:21→22:40)
[2016-06-19] MEDS: DIGOXIN 0.125 MG TAB PO SCH (09:21)
[2016-06-19] MEDS: RIVAROXABAN 20 MG TAB PO SCH (09:21)
[2016-06-19] MEDS: ACETAMINOPHEN/HYDROcodone 325 MG/5 MG TAB PO PRN ×2 (09:30→23:51)
[2016-06-19] MEDS ORDERED: DILTIAZEM-CD 180 MG CAP ER PO ONE (10:45)
--- NOTE | 2016-06-19 10:46 | HHI.PR ---
Subjective Remarks Patient seen and examined today with Dr. Santaigo. Nursing staff indicates that patient still having episodes of bradycardia at night down to 39. Patient still easily having O2 desaturations when eating or talking. Objective Vitals Vital Signs Date Time Temp Pulse Resp B/P Pulse Ox O2 Delivery O2 Flow Rate FiO2 06/19/16 10:00 80 06/19/16 08:00 98.2 84 26 152/74 89 06/19/16 08:00 55 06/19/16 08:00 90 Nasal Cannula 4.00 06/19/16 07:42 78 26 176/85 91 06/19/16 07:39 90 Nasal Cannula 4.00 06/19/16 04:56 93 35 06/19/16 04:00 92 Bi-Pap 35 06/19/16 04:00 98.0 52 18 151/76 91 06/19/16 04:00 50 06/19/16 02:45 88 Bi-Pap 35 06/19/16 02:44 91 35 06/19/16 02:00 50 06/19/16 00:09 92 Bi-Pap 30 06/19/16 00:05 98.2 72 23 152/83 91 06/19/16 00:01 68 06/18/16 23:52 92 Bi-Pap 30 06/18/16 23:49 92 30 06/18/16 23:00 92 Nasal Cannula 4.00 06/18/16 22:00 72 06/18/16 21:00 79 06/18/16 21:00 92 Bi-Pap 30 06/18/16 20:55 94 30 06/18/16 20:39 92 Nasal Cannula 4.00 06/18/16 20:00 98.1 79 20 178/90 97 06/18/16 20:00 92 Nasal Cannula 4.00 06/18/16 20:00 79 06/18/16 18:28 80 06/18/16 16:08 80 25 160/86 89 06/18/16 16:00 93 Nasal Cannula 4.00 06/18/16 16:00 88 06/18/16 14:00 76 06/18/16 12:00 92 Nasal Cannula 4.00 06/18/16 12:00 78 06/18/16 11:57 97.4 80 13 135/76 93 06/18/16 11:00 92 Nasal Cannula 4.00 I/O 06/18/16 06/18/16 06/18/16 06/19/16 06/19/16 06/19/16 07:00 15:00 23:00 07:00 15:00 23:00 Intake Total 240 ml 345 ml 480 ml 240 ml Output Total 700 ml 200 ml 700 ml 300 ml 400 ml Balance -460 ml 145 ml -220 ml -60 ml -400 ml Intake Oral 240 ml 345 ml 480 ml 240 ml Output Urine Total 700 ml 200 ml 700 ml 300 ml 400 ml # Voids 2 1 # Bowel Movements 0 0 0 0 0 Result Diagram: 06/18/16211706/18/162117 Objective Remarks GENERAL: Well-developed, well-nourished, in no acute distress. alert and orientated HEENT: Head is normocephalic without any lesions or masses noted. Facial features are symmetric. Eyes: Extraocular muscles are intact. Conjunctivae were clear. NECK: Supple without any masses. Trachea midline no deviation. No JVD, CARDIAC: Regular rhythm, regular rate. S1/S2 are heard. No murmurs gallops or rubs. LUNGS: Diminished breath sounds noted bilaterally. No wheeze, rhonchi or rales. No use of accessory muscles on inspiration or expiration. ABDOMEN: Soft, nontender. Nondistended. Bowel sounds heard in all 4 quadrants. No organomegaly or masses. Negative rebound, negative guarding EXTREMITIES: No edema, pulses are equal bilaterally. No cyanosis or clubbing NEUROLOGY: Mood and affect appear appropriate. Cranial nerves II through XII grossly intact. Moving all extremities, speech is clear Urinary Catheter: No Vascular Central Line Catheter: No A/P Assessment and Plan -Acute on chronic respiratory failure with hypoxia and hypercapnia: Secondary to COPD exacerbation. Slow improvement. Continue BiPAP at night. Weaning Solu -Medrol, continue bronchodilators. Chest CT revealed emphysematous changes. Pulmonology following the patient is recommending weaning off the Solu-Medrol and continuing present treatment plan -Atrial flutter with RVR: Heart rate is controlled, however having episodes of bradycardia while sleeping down to 39. Decrease to Cardizem CD 180 mg daily, continue Xarelto for anticoagulation. Echocardiogram indicates ejection fraction 50-55%, normal systolic function, mild mitral and tricuspid valve regurgitation. Cultural Historian recommends continuation of Cardizem and anticoagulation. -Suppressed TSH. free T3 slightly low and free T4 is normal. Likely clinically euthyroid. Recommend repeat thyroid studies as outpatient with primary care physician. -DVT prophylaxis: Xarelto Written by Phill Vanessa PA-C, acting as scribe for Dr. Santiago on 06/19/16 at 1220. The documentation accurately reflects the work and decisions performed face-to- face by Dr. Santiago on 06/19/16 at 1220. Phill Vanessa Jun 19, 2016 10:46
[2016-06-19 11:22] LABS: BLOOD GAS BASE EXCESS 12.5 mmol/L (-2-2); BLOOD GAS CARBOXYHEMOGLOBIN 1.8 % (0-4); BLOOD GAS HCO3 38 mmol/L (22-26); BLOOD GAS METHEMOGLOBIN 1.3 % (0-2); BLOOD GAS O2 HGB SATURATION 87 % (90-100); BLOOD GAS OXYGEN CONTENT 15.7 Vol % (12.0-20.0); BLOOD GAS PCO2 60 mmHG (38-42); BLOOD GAS PO2 65 mmHG (61-120); BLOOD GAS TOTAL HGB 12.7 G/DL (12.0-16.0); CRITICAL VALUE YES; DRAW SITE RT RADIAL; LITER FLOW 4 L/M; NUMBER OF ARTERIAL PUNCTURES 1; OXYGEN DEVICE NASAL CANNULA; STAT NO; TEMP CORR TO 98.6; ULNAR PULSE PRESENT
--- NOTE | 2016-06-19 18:19 | HHI.PR ---
Subjective Remarks 61 YOWM with COPD exac, Hpercapnoic YONI, Kristoferer On Cardiazem Has worsening sob and Resp acidosis Alert, awake, sob Weaned to [place] CT chest emphysema Family at had brief bradycardia Being tr to floor Objective Vital Signs Vital Signs Date Time Temp Pulse Resp B/P Pulse Ox O2 Delivery O2 Flow Rate FiO2 06/19/16 10:00 80 06/19/16 08:00 98.2 84 26 152/74 89 06/19/16 08:00 55 06/19/16 08:00 90 Nasal Cannula 4.00 06/19/16 07:42 78 26 176/85 91 06/19/16 07:39 90 Nasal Cannula 4.00 06/19/16 04:56 93 35 06/19/16 04:00 92 Bi-Pap 35 06/19/16 04:00 98.0 52 18 151/76 91 06/19/16 04:00 50 06/19/16 02:45 88 Bi-Pap 35 06/19/16 02:44 91 35 06/19/16 02:00 50 06/19/16 00:09 92 Bi-Pap 30 06/19/16 00:05 98.2 72 23 152/83 91 06/19/16 00:01 68 06/18/16 23:52 92 Bi-Pap 30 06/18/16 23:49 92 30 06/18/16 23:00 92 Nasal Cannula 4.00 06/18/16 22:00 72 06/18/16 21:00 79 06/18/16 21:00 92 Bi-Pap 30 06/18/16 20:55 94 30 06/18/16 20:39 92 Nasal Cannula 4.00 06/18/16 20:00 98.1 79 20 178/90 97 06/18/16 20:00 92 Nasal Cannula 4.00 06/18/16 20:00 79 06/18/16 18:28 80 I/O 06/18/16 06/18/16 06/18/16 06/19/16 06/19/16 06/19/16 07:00 15:00 23:00 07:00 15:00 23:00 Intake Total 240 ml 345 ml 480 ml 240 ml Output Total 700 ml 200 ml 700 ml 300 ml 400 ml Balance -460 ml 145 ml -220 ml -60 ml -400 ml Intake Oral 240 ml 345 ml 480 ml 240 ml Output Urine Total 700 ml 200 ml 700 ml 300 ml 400 ml # Voids 2 1 # Bowel Movements 0 0 0 0 0 Result Diagram: 06/18/16211706/18/162117 Objective Remarks GENERAL: WBWN WM, NAD SKIN: Warm and dry. HEAD: Normocephalic. EYES: No scleral icterus. No injection or drainage. NECK: Supple, trachea midline. No JVD or lymphadenopathy. CARDIOVASCULAR: Regular rate and rhythm without murmurs, gallops, or rubs. RESPIRATORY: Breath sounds equal bilaterally. No accessory muscle use. GASTROINTESTINAL: Abdomen soft, non-tender, nondistended. MUSCULOSKELETAL: No cyanosis, or edema. BACK: Nontender without obvious deformity. No CVA tenderness. A/P Assessment and Plan COPD Exac Hypercapnoic RF A.Flutter HTN PLAN: Cardiazem for rate controll Supplement 02 to keep sat >90% BIPAP PRN DW pt and Family DC Solumedrol pred 10 mg tid Stable pulm Available prn over weekend Mike Mitchell MD Jun 19, 2016 18:19
[2016-06-19] MEDS: predniSONE 10 MG TAB PO SCH (19:00)
[2016-06-20] VITALS (20 sets, daily range): BP systolic 138–177; BP diastolic 79–91; PULSE 42–100; RESP 17–20; TEMP 96.2–98.3; O2SAT 92–95
[2016-06-20] MEDS: ACETAMINOPHEN/HYDROcodone 325 MG/5 MG TAB PO PRN ×2 (06:26→23:01)
[2016-06-20] MEDS: RESP: ALBUTEROL 1.25 MG/3 ML NEB (SCH) NEB ×4 (07:31→19:45)
--- NOTE | 2016-06-20 07:54 | HHI.PR ---
Subjective Remarks Patient seen and examined today with Dr. Santiago. Patient uses BiPAP throughout the night. Patient with good O2 saturations on 4 L nasal cannula. Transfer patient to medical surgical floor today. Objective Vitals Vital Signs Date Time Temp Pulse Resp B/P Pulse Ox O2 Delivery O2 Flow Rate FiO2 06/20/16 06:00 93 Nasal Cannula 3.00 06/20/16 06:00 66 06/20/16 05:00 51 06/20/16 04:00 98.3 51 18 165/91 95 06/20/16 04:00 96 Bi-Pap 35 06/20/16 04:00 52 06/20/16 03:55 95 35 06/20/16 02:00 96 Bi-Pap 35 06/20/16 02:00 42 06/20/16 00:05 95 35 06/20/16 00:00 95 Bi-Pap 35 06/20/16 00:00 78 06/20/16 00:00 98.1 78 20 177/88 95 06/19/16 20:01 98.2 80 19 156/79 89 06/19/16 19:00 82 23 171/85 92 06/19/16 18:59 90 Nasal Cannula 4.00 06/19/16 18:59 91 Nasal Cannula 4.00 06/19/16 18:00 80 06/19/16 16:00 90 Nasal Cannula 4.00 06/19/16 16:00 78 06/19/16 16:00 97.3 78 24 160/73 91 06/19/16 14:00 91 Nasal Cannula 4.00 06/19/16 14:00 82 06/19/16 12:00 80 06/19/16 12:00 97.5 80 16 160/79 89 06/19/16 10:00 80 06/19/16 08:00 98.2 84 26 152/74 89 06/19/16 08:00 55 06/19/16 08:00 90 Nasal Cannula 4.00 I/O 06/19/16 06/19/16 06/19/16 06/20/16 06/20/16 06/20/16 07:00 15:00 23:00 07:00 15:00 23:00 Intake Total 240 ml 720 ml 600 ml Output Total 300 ml 1500 ml 400 ml 700 ml Balance -60 ml -780 ml -400 ml -100 ml Intake Oral 240 ml 720 ml 600 ml IV Total 0 ml Output Urine Total 300 ml 1500 ml 400 ml 700 ml # Bowel Movements 0 0 0 Result Diagram: 06/18/16211706/18/162117 Objective Remarks GENERAL: Well-developed, well-nourished, in no acute distress. alert and orientated HEENT: Head is normocephalic without any lesions or masses noted. Facial features are symmetric. Eyes: Extraocular muscles are intact. Conjunctivae were clear. NECK: Supple without any masses. Trachea midline no deviation. No JVD, CARDIAC: Regular rhythm, regular rate. S1/S2 are heard. No murmurs gallops or rubs. LUNGS: Diminished breath sounds noted bilaterally. No wheeze, rhonchi or rales. No use of accessory muscles on inspiration or expiration. ABDOMEN: Soft, nontender. Nondistended. Bowel sounds heard in all 4 quadrants. No organomegaly or masses. Negative rebound, negative guarding EXTREMITIES: No edema, pulses are equal bilaterally. No cyanosis or clubbing NEUROLOGY: Mood and affect appear appropriate. Cranial nerves II through XII grossly intact. Moving all extremities, speech is clear Urinary Catheter: No Vascular Central Line Catheter: No A/P Assessment and Plan -Acute on chronic respiratory failure with hypoxia and hypercapnia: Secondary to COPD exacerbation. Slow improvement. Continue BiPAP at night. Change prednisone 10 mg 3 times daily, continue bronchodilators. Chest CT revealed emphysematous changes. Pulmonology following the patient, changed to prednisone 10 mg 3 times daily and continuing present treatment plan -Atrial flutter with RVR: Heart rate is controlled, since lowering dose of Cardizem, no recurrent episodes of bradycardia. Patient did have some tachycardia throughout the night. Cardizem CD 180 mg daily, continue Xarelto for anticoagulation. Echocardiogram indicates ejection fraction 50-55%, normal systolic function, mild mitral and tricuspid valve regurgitation. Hydraulic Plumber recommends continuation of Cardizem and anticoagulation. -Suppressed TSH. free T3 slightly low and free T4 is normal. Likely clinically euthyroid. Recommend repeat thyroid studies as outpatient with primary care physician. -DVT prophylaxis: Xarelto Written by Phill Vanessa PA-C, acting as scribe for Dr. Santiago on 06/20/16 at 1230. The documentation accurately reflects the work and decisions performed face-to- face by Dr. Santiago on 06/20/16 at 1230. Phill Vanessa Jun 20, 2016 07:54
[2016-06-20] MEDS: DIGOXIN 0.125 MG TAB PO SCH (08:49)
[2016-06-20] MEDS: RIVAROXABAN 20 MG TAB PO SCH (08:49)
[2016-06-20] MEDS: predniSONE 10 MG TAB PO SCH ×3 (08:50→17:48)
[2016-06-20] MEDS: SODIUM CHLORIDE 0.9% FLUSH 5 ML FLUSH IVF PRN (08:50)
[2016-06-20] MEDS: DILTIAZEM-CD 180 MG CAP ER PO SCH (08:50)
[2016-06-20] MEDS: BUDESONIDE-FORMOTEROL 160/4.5 MCG INHALER INH SCH ×2 (08:55→20:12)
[2016-06-20] MEDS: ACETAMINOPHEN/HYDROcodone 325 MG/10 MG TAB PO PRN ×2 (08:56→17:49)
[2016-06-21] VITALS (13 sets, daily range): BP systolic 152–185; BP diastolic 60–100; PULSE 42–82; RESP 18–22; TEMP 96.3–98; O2SAT 90–96
[2016-06-21] MEDS: ACETAMINOPHEN/HYDROcodone 325 MG/5 MG TAB PO PRN ×2 (03:26→20:03)
[2016-06-21 07:05] LABS: HEMATOCRIT 40.9 % (39.0-51.0); MEAN CELL VOLUME 84.6 FL (80.0-100.0); MEAN CORPUSCULAR HEMOGLOBIN 27.2 PG (27.0-34.0); MEAN CORPUSCULAR HGB CONC 32.1 % (32.0-36.0); PLATELET COUNT 204 TH/MM3 (150-450); RED BLOOD COUNT 4.84 MIL/MM3 (4.50-5.90); RED CELL DISTRIBUTION WIDTH 15.4 % (11.6-17.2); REVIEW FLAG FINAL; WHITE BLOOD COUNT 12.1 TH/MM3 (4.0-11.0)
[2016-06-21] MEDS: RESP: ALBUTEROL 1.25 MG/3 ML NEB (SCH) NEB ×3 (07:37→16:01)
[2016-06-21] MEDS: BUDESONIDE-FORMOTEROL 160/4.5 MCG INHALER INH SCH ×2 (09:07→21:55)
[2016-06-21] MEDS: DIGOXIN 0.125 MG TAB PO SCH (09:08)
[2016-06-21] MEDS: DILTIAZEM-CD 180 MG CAP ER PO SCH (09:08)
[2016-06-21] MEDS: predniSONE 10 MG TAB PO SCH ×3 (09:08→17:55)
[2016-06-21] MEDS: RIVAROXABAN 20 MG TAB PO SCH (09:08)
--- NOTE | 2016-06-21 10:03 | HHI.PR ---
Subjective Remarks Patient seen and examined today with Dr. Santiago. Patient states that he is noticing that he was yesterday. Required BiPAP last night. Is on nasal cannula 3 L this morning. Patient still with tachycardia on telemetry 150's while eating Objective Vitals Vital Signs Date Time Temp Pulse Resp B/P Pulse Ox O2 Delivery O2 Flow Rate FiO2 06/21/16 08:54 96.7 82 22 185/100 91 06/21/16 08:00 Nasal Cannula 3.00 Humidified 06/21/16 08:00 79 06/21/16 07:56 90 Nasal Cannula 3.50 06/21/16 05:47 42 06/21/16 05:45 93 Nasal Cannula 3.50 06/21/16 04:00 96.3 50 18 152/70 96 06/21/16 03:35 93 35 06/21/16 00:00 93 35 06/21/16 00:00 97.1 42 18 155/77 96 06/20/16 20:00 93 Nasal Cannula 3.00 Humidified 06/20/16 20:00 96.2 82 20 177/91 93 06/20/16 19:46 80 06/20/16 19:45 92 Nasal Cannula 3.50 06/20/16 18:50 81 06/20/16 16:51 Nasal Cannula 4.00 35 06/20/16 16:49 80 06/20/16 16:00 77 18 174/79 94 06/20/16 14:51 98 06/20/16 12:15 Nasal Cannula 4.00 35 06/20/16 12:15 100 06/20/16 12:00 98.0 74 18 138/88 95 06/20/16 10:04 60 I/O 06/20/16 06/20/16 06/20/16 06/21/16 06/21/16 06/21/16 07:00 15:00 23:00 07:00 15:00 23:00 Intake Total 600 ml 0 ml 480 ml 240 ml Output Total 700 ml Balance -100 ml 0 ml 480 ml 240 ml Intake Oral 600 ml 480 ml 240 ml IV Total 0 ml Output Urine Total 700 ml # Voids 3 2 # Bowel Movements 0 1 0 Result Diagram: 06/21/16 0616 06/18/162117 Objective Remarks GENERAL: Well-developed, well-nourished, in no acute distress. alert and orientated HEENT: Head is normocephalic without any lesions or masses noted. Facial features are symmetric. Eyes: Extraocular muscles are intact. Conjunctivae were clear. NECK: Supple without any masses. Trachea midline no deviation. No JVD, CARDIAC: Regular rhythm, regular rate. S1/S2 are heard. No murmurs gallops or rubs. LUNGS: Fine wheeze noted bilaterally. No rhonchi or rales. No use of accessory muscles on inspiration or expiration. ABDOMEN: Soft, nontender. Nondistended. Bowel sounds heard in all 4 quadrants. No organomegaly or masses. Negative rebound, negative guarding EXTREMITIES: No edema, pulses are equal bilaterally. No cyanosis or clubbing NEUROLOGY: Mood and affect appear appropriate. Cranial nerves II through XII grossly intact. Moving all extremities, speech is clear Urinary Catheter: No Vascular Central Line Catheter: No A/P Assessment and Plan -Acute on chronic respiratory failure with hypoxia and hypercapnia: Secondary to COPD exacerbation. Slow improvement. Continue BiPAP at night. Change prednisone 10 mg 3 times daily, continue bronchodilators. Chest CT revealed emphysematous changes. Pulmonology following the patient, changed to prednisone 10 mg 3 times daily and continuing present treatment plan -Atrial flutter with RVR: Heart rate is controlled, since lowering dose of Cardizem, no recurrent episodes of bradycardia. Patient did have some tachycardia throughout the night. Cardizem CD 180 mg daily, continue Xarelto for anticoagulation. Echocardiogram indicates ejection fraction 50-55%, normal systolic function, mild mitral and tricuspid valve regurgitation. Automotive Service Advisor recommends continuation of Cardizem and anticoagulation. -Suppressed TSH. free T3 slightly low and free T4 is normal. Likely clinically euthyroid. Recommend repeat thyroid studies as outpatient with primary care physician. -DVT prophylaxis: Xarelto Written by Phill Vanessa PA-C, acting as scribe for Dr. Santiago on 06/21/16 at 1320. The documentation accurately reflects the work and decisions performed face-to- face by Dr. Santiago on 06/21/16 at 1320. Discharge Planning Consult case management to arrange home health care, home oxygen. Phill Vanessa Jun 21, 2016 10:03
--- NOTE | 2016-06-21 10:05 | HHI.FF ---
Face to Face Verification Diagnosis: (1) Acute respiratory failure (2) COPD exacerbation Physical Therapy Order: Evaluate and Treat, Improve ambulation, Strength and gait training Home Health Nursing Order: Medical education Signs/symptoms of disease process Oxygen administration education Nursing assessment with vital signs I have seen patient Delroy Sanchez on 06/21/16. My clinical findings support the need for the requested home health care services because: Patient has SOB I certify that my clinical findings support that this patient is homebound because: Hx COPD- exertion dyspnea/weakness Phill Vanessa Jun 21, 2016 10:05
[2016-06-21] MEDS: RESP: ALBUTEROL 2.5 MG/IPRATROPIUM 0.5 MG NEB (SCH) NEB (19:18)
[2016-06-22] VITALS (11 sets, daily range): BP systolic 148–172; BP diastolic 70–90; PULSE 62–94; RESP 18–20; TEMP 96–97.9; O2SAT 89–95
[2016-06-22] MEDS: ACETAMINOPHEN/HYDROcodone 325 MG/5 MG TAB PO PRN ×2 (00:56→07:54)
[2016-06-22] MEDS: RESP: ALBUTEROL 2.5 MG/IPRATROPIUM 0.5 MG NEB (SCH) NEB ×3 (07:42→19:27)
[2016-06-22] MEDS: predniSONE 10 MG TAB PO SCH (07:50)
[2016-06-22] MEDS: SODIUM CHLORIDE 0.9% FLUSH 5 ML FLUSH IVF PRN ×2 (07:50→21:51)
[2016-06-22] MEDS: DIGOXIN 0.125 MG TAB PO SCH (07:50)
[2016-06-22] MEDS: DILTIAZEM-CD 180 MG CAP ER PO SCH (07:50)
[2016-06-22] MEDS: RIVAROXABAN 20 MG TAB PO SCH (07:50)
[2016-06-22] MEDS: BUDESONIDE-FORMOTEROL 160/4.5 MCG INHALER INH SCH ×2 (07:51→21:51)
--- NOTE | 2016-06-22 11:12 | HHI.PR ---
Subjective Remarks Patient seen and examined today with Dr. Santiago. Patient still with significant shortness of breath. He is compliant with BiPAP at night but requests a break as he has a skin abrasion to the bridge of his nose. Objective Vitals Vital Signs Date Time Temp Pulse Resp B/P Pulse Ox O2 Delivery O2 Flow Rate FiO2 06/22/16 08:44 Nasal Cannula 4.00 35 06/22/16 08:44 94 06/22/16 08:00 97.9 90 18 165/84 90 06/22/16 07:43 90 Nasal Cannula 4.00 06/22/16 04:00 96.4 62 20 150/70 92 06/22/16 04:00 91 35 06/22/16 01:42 89 06/22/16 01:00 90 35 06/22/16 00:00 96.0 72 20 148/90 89 148/90 06/21/16 22:01 22 06/21/16 20:10 80 06/21/16 20:10 93 Nasal Cannula 4.00 06/21/16 20:00 98.0 81 20 153/95 93 06/21/16 19:18 90 Nasal Cannula 4.00 06/21/16 17:54 97.5 80 20 158/60 94 06/21/16 16:00 Nasal Cannula 3.50 Humidified 06/21/16 14:32 96.9 81 20 177/90 90 06/21/16 12:00 Nasal Cannula 3.00 Humidified I/O 06/21/16 06/21/16 06/21/16 06/22/16 06/22/16 06/22/16 07:00 15:00 23:00 07:00 15:00 23:00 Intake Total 240 ml 1040 ml 220 ml Balance 240 ml 1040 ml 220 ml Intake Oral 240 ml 1040 ml 220 ml # Voids 2 5 1 # Bowel Movements 0 0 0 Result Diagram: 06/21/1661506/18/162117 Objective Remarks GENERAL: Well-developed, well-nourished, in no acute distress. alert and orientated HEENT: Head is normocephalic without any lesions or masses noted. Facial features are symmetric. Eyes: Extraocular muscles are intact. Conjunctivae were clear. NECK: Supple without any masses. Trachea midline no deviation. No JVD, CARDIAC: Regular rhythm, regular rate. S1/S2 are heard. No murmurs gallops or rubs. LUNGS: Very minimal air movement bilaterally. Fine wheeze noted bilaterally. No rhonchi or rales. No use of accessory muscles on inspiration or expiration. ABDOMEN: Soft, nontender. Nondistended. Bowel sounds heard in all 4 quadrants. No organomegaly or masses. Negative rebound, negative guarding EXTREMITIES: No edema, pulses are equal bilaterally. No cyanosis or clubbing NEUROLOGY: Mood and affect appear appropriate. Cranial nerves II through XII grossly intact. Moving all extremities, speech is clear Urinary Catheter: No Vascular Central Line Catheter: No A/P Assessment and Plan -Acute on chronic respiratory failure with hypoxia and hypercapnia: Secondary to COPD exacerbation. Chest CT revealed emphysematous changes. Slow improvement. Patient ambulating very well however sats do drop to 85% while ambulating but quickly returned to 88%, his pulses remained controlled in the 80s while ambulating. I believe patient has probably "lived" like this for some time. He states that he does not feel short of breath when ambulating and he feels back to baseline. We'll continue with by mouth prednisone. We'll hold off on BiPAP tonight to see how he does and check an ABG in the morning. We are in process of arranging home health care. If he does well overnight and home oxygen can be arranged, he can be discharged home tomorrow. Pulmonology following the patient, and I discussed the patient with Dr. Riley over the weekend who was in agreement with discharge planning. -Atrial flutter with RVR: Heart rate is controlled, since lowering dose of Cardizem, no recurrent episodes of bradycardia. Patient did have some tachycardia throughout the night. Cardizem CD 180 mg daily, continue Xarelto for anticoagulation. Echocardiogram indicates ejection fraction 50-55%, normal systolic function, mild mitral and tricuspid valve regurgitation. Golf Course Equipment Operator recommends continuation of Cardizem and anticoagulation. -Suppressed TSH. free T3 slightly low and free T4 is normal. Likely clinically euthyroid. Recommend repeat thyroid studies as outpatient with primary care physician. -DVT prophylaxis: Xarelto Written by Phill Vanessa PA-C, acting as scribe for Dr. Santiago on 06/22/16 at 1405. The documentation accurately reflects the work and decisions performed face-to- face by Dr. Santiago on 06/22/16 at 1405. Discharge Planning Consult case management to arrange home health care, home oxygen. Phill Vanessa Jun 22, 2016 11:12 Nelida Santiago MD Jun 22, 2016 15:45
[2016-06-22] MEDS: methylPREDNISolone SOD SUCC 40 MG/1 ML VIAL IV PUSH SCH ×2 (12:45→18:00)
[2016-06-22] MEDS: NEOMYCIN/POLYMYXIN/BACITRACIN OINT 15 GM TUBE TOPICAL SCH (15:36)
[2016-06-22] MEDS: ACETAMINOPHEN/HYDROcodone 325 MG/10 MG TAB PO PRN ×2 (15:40→21:50)
[2016-06-23] VITALS (11 sets, daily range): BP systolic 160–190; BP diastolic 72–99; PULSE 75–96; RESP 20; TEMP 95.9–98.9; O2SAT 89–94
[2016-06-23] MEDS: methylPREDNISolone SOD SUCC 40 MG/1 ML VIAL IV PUSH SCH ×4 (00:56→18:05)
[2016-06-23] MEDS: ACETAMINOPHEN/HYDROcodone 325 MG/10 MG TAB PO PRN ×4 (04:55→21:19)
[2016-06-23 05:09] LABS: BLOOD GAS BASE EXCESS 13.1 mmol/L (-2-2); BLOOD GAS CARBOXYHEMOGLOBIN 1.6 % (0-4); BLOOD GAS HCO3 39 mmol/L (22-26); BLOOD GAS METHEMOGLOBIN 1.3 % (0-2); BLOOD GAS O2 HGB SATURATION 91 % (90-100); BLOOD GAS OXYGEN CONTENT 16.1 Vol % (12.0-20.0); BLOOD GAS PCO2 69 mmHG (38-42); BLOOD GAS PO2 73 mmHG (61-120); BLOOD GAS TOTAL HGB 12.6 G/DL (12.0-16.0); TEMP CORR TO 98.6
[2016-06-23 05:10] LABS: CRITICAL VALUE YES; DRAW SITE RT RADIAL; LITER FLOW 6 L/M; NUMBER OF ARTERIAL PUNCTURES 1; OXYGEN DEVICE NASAL CANNULA; STAT NO; ULNAR PULSE PRESENT
[2016-06-23] MEDS: RESP: ALBUTEROL 2.5 MG/IPRATROPIUM 0.5 MG NEB (SCH) NEB ×3 (07:36→19:23)
[2016-06-23] MEDS: BUDESONIDE-FORMOTEROL 160/4.5 MCG INHALER INH SCH ×2 (08:42→21:20)
[2016-06-23] MEDS: DILTIAZEM-CD 180 MG CAP ER PO SCH (08:43)
[2016-06-23] MEDS: RIVAROXABAN 20 MG TAB PO SCH (08:43)
[2016-06-23] MEDS: DIGOXIN 0.125 MG TAB PO SCH (08:43)
[2016-06-23] MEDS: NEOMYCIN/POLYMYXIN/BACITRACIN OINT 15 GM TUBE TOPICAL SCH (09:44)
--- NOTE | 2016-06-23 11:22 | HHI.PR ---
Subjective Remarks Patient seen and evaluated today in follow-up for COPD and atrial fibrillation. CO2 retention and still remains a problem as well as hypoxemia with minimal exertion. Today's heart rate went up to 150s with minimal exertion. Patient is quite symptomatic with both his primary problems. No chest pain or nausea is reported. Care plan discussed with patient and with Navin COVARRUBIAS Objective Vitals Vital Signs Date Time Temp Pulse Resp B/P Pulse Ox O2 Delivery O2 Flow Rate FiO2 06/23/16 08:00 97.7 80 20 181/99 91 06/23/16 07:38 90 Nasal Cannula 6.00 06/23/16 04:00 94 Nasal Cannula 6.00 06/23/16 04:00 96.4 78 20 160/72 93 06/23/16 00:00 94 Nasal Cannula 6.00 06/23/16 00:00 95.9 75 20 166/81 94 06/22/16 20:38 74 06/22/16 20:00 96.4 80 20 172/81 92 06/22/16 20:00 92 Nasal Cannula 6.00 06/22/16 19:28 95 Nasal Cannula 6.00 06/22/16 16:11 Nasal Cannula 4.00 35 06/22/16 16:00 97.7 78 18 158/80 92 06/22/16 12:25 Nasal Cannula 4.00 35 06/22/16 12:00 97.7 78 18 160/79 90 160/79 I/O 06/22/16 06/22/16 06/22/16 06/23/16 06/23/16 06/23/16 07:00 15:00 23:00 07:00 15:00 23:00 Intake Total 220 ml 0 ml 840 ml 80 ml Output Total 250 ml 200 ml Balance 220 ml 0 ml 590 ml -120 ml Intake Oral 220 ml 840 ml 80 ml IV Total 0 ml Output Urine Total 250 ml 200 ml Stool Total 0 ml # Voids 1 # Bowel Movements 0 0 Result Diagram: 06/21/16 0616 Imaging Last Impressions Chest CT 06/16/16 0000 Signed Impressions: Service Date/Time: Thursday, June 16, 2016 22:04 - CONCLUSION: 1. Emphysematous changes. 2. No acute infiltrate or effusion. Joshua Cabezas Jr., MD Chest X-Ray 06/15/16 0000 Signed Impressions: Service Date/Time: Wednesday, June 15, 2016 10:22 - CONCLUSION: No acute disease. Eyal Brewer MD Objective Remarks GENERAL: This is a well-nourished, well-developed patient, in no apparent distress. CARDIOVASCULAR: Atrial fibrillation with regular rate without murmurs, gallops, or rubs. RESPIRATORY: Decreased air flow, overall Clear to auscultation. Breath sounds equal bilaterally. No wheezes, rales, or rhonchi. GASTROINTESTINAL: Abdomen soft, non-tender, nondistended. Normal active bowel sounds MUSCULOSKELETAL: Extremities without clubbing, cyanosis, or edema. NEURO: Alert & Oriented x4 to person, place, time, situation. Moves all ext x4 A/P Problem List: (1) Acute respiratory failure ICD Code: J96.00 Status: Acute Plan: Acute hypoxemic and hypercapnic respiratory failure Continue with BiPAP overnight, patient with severe COPD and is on 6 L now. Continue with steroids, bronchodilators (2) Atrial flutter, paroxysmal ICD Code: I48.92 Status: Chronic Plan: Continue with Cardizem,dig, xarelto, patient on telemetry Recheck digoxin level Discharge Planning home when stable Problem Qualifiers (1) Acute respiratory failure: Qualified Code: J96.01 - Acute respiratory failure with hypoxia and hypercapnia Imelda Boykin MD Jun 23, 2016 11:22
[2016-06-23 12:28] LABS: AUTOMATED NEUTROPHIL # 16.7 TH/MM3 (1.8-7.7); HEMATOCRIT 39.4 % (39.0-51.0); LYMPH % 2.9 % (9.0-44.0); LYMPHOCYTE # 0.5 TH/MM3 (1.0-4.8); MEAN CELL VOLUME 82.6 FL (80.0-100.0); MEAN CORPUSCULAR HEMOGLOBIN 27.2 PG (27.0-34.0); MEAN CORPUSCULAR HGB CONC 32.9 % (32.0-36.0); MONO % 4.2 % (0.0-8.0); NEUT % 92.9 % (16.0-70.0); PLATELET COUNT 265 TH/MM3 (150-450); RED BLOOD COUNT 4.77 MIL/MM3 (4.50-5.90); RED CELL DISTRIBUTION WIDTH 15.3 % (11.6-17.2)
[2016-06-23 12:29] LABS: HEMO FLAGS DIFF FINAL
[2016-06-23 12:37] LABS: POTASSIUM 4.6 MEQ/L (3.5-5.1)
[2016-06-23 12:40] LABS: BICARBONATE 38.7 MEQ/L (21.0-32.0)
[2016-06-23 13:22] LABS: DIGOXIN 0.6 NG/ML (0.8-2.0)
--- NOTE | 2016-06-23 18:24 | HHI.PR ---
Subjective Remarks 61 YOWM with COPD exac, Hpercapnoic Aníbal VALLEJO Alert, awake, sob Weaned to [place] CT chest emphysema on cardiazem for rate controll Desaturates with activity Objective Vital Signs Vital Signs Date Time Temp Pulse Resp B/P Pulse Ox O2 Delivery O2 Flow Rate FiO2 06/23/16 17:19 89 Nasal Cannula 4.00 06/23/16 14:07 89 Nasal Cannula 4.00 06/23/16 12:40 92 4.00 06/23/16 12:00 97.8 80 20 182/93 90 06/23/16 11:50 4.00 06/23/16 09:10 80 06/23/16 09:10 93 6.00 06/23/16 08:00 97.7 80 20 181/99 91 06/23/16 07:38 90 Nasal Cannula 6.00 06/23/16 04:00 94 Nasal Cannula 6.00 06/23/16 04:00 96.4 78 20 160/72 93 06/23/16 00:00 94 Nasal Cannula 6.00 06/23/16 00:00 95.9 75 20 166/81 94 06/22/16 20:38 74 06/22/16 20:00 96.4 80 20 172/81 92 06/22/16 20:00 92 Nasal Cannula 6.00 06/22/16 19:28 95 Nasal Cannula 6.00 I/O 06/22/16 06/22/16 06/22/16 06/23/16 06/23/16 06/23/16 07:00 15:00 23:00 07:00 15:00 23:00 Intake Total 220 ml 0 ml 840 ml 80 ml 600 ml 0 ml Output Total 250 ml 200 ml Balance 220 ml 0 ml 590 ml -120 ml 600 ml 0 ml Intake Oral 220 ml 840 ml 80 ml 600 ml IV Total 0 ml 0 ml Output Urine Total 250 ml 200 ml Stool Total 0 ml # Voids 1 # Bowel Movements 0 0 Result Diagram: 06/23/16 1210 06/23/16 1210 Objective Remarks GENERAL: WBWN WM, NAD SKIN: Warm and dry. HEAD: Normocephalic. EYES: No scleral icterus. No injection or drainage. NECK: Supple, trachea midline. No JVD or lymphadenopathy. CARDIOVASCULAR: Regular rate and rhythm without murmurs, gallops, or rubs. RESPIRATORY: Breath sounds equal bilaterally. No accessory muscle use. GASTROINTESTINAL: Abdomen soft, non-tender, nondistended. MUSCULOSKELETAL: No cyanosis, or edema. BACK: Nontender without obvious deformity. No CVA tenderness. A/P Assessment and Plan COPD Exac Hypercapnoic RF A.Flutter HTN PLAN: Cardiazem for rate controll Supplement 02 to keep sat >90% BIPAP PRN Solumedrol 40 mg q 8 hrs May need rehab Mike Mitchell MD Jun 23, 2016 18:24
[2016-06-23] MEDS ORDERED: cloNIDine HCL 0.1 MG TAB PO ONE (21:45)
[2016-06-24] VITALS: BP 160/84; PULSE 81; RESP 22; TEMP 96.1; O2SAT 93
[2016-06-24] MEDS: methylPREDNISolone SOD SUCC 40 MG/1 ML VIAL IV PUSH SCH ×2 (00:05→05:59)
[2016-06-24 04:00] VITALS: BP 165/99; PULSE 73; RESP 20; TEMP 95.9; O2SAT 92
[2016-06-24] MEDS: ACETAMINOPHEN/HYDROcodone 325 MG/10 MG TAB PO PRN ×2 (06:01→11:59)
[2016-06-24 06:38] LABS: HEMATOCRIT 37.3 % (39.0-51.0); MEAN CELL VOLUME 83.4 FL (80.0-100.0); MEAN CORPUSCULAR HGB CONC 32.4 % (32.0-36.0); PLATELET COUNT 206 TH/MM3 (150-450); RED BLOOD COUNT 4.47 MIL/MM3 (4.50-5.90); RED CELL DISTRIBUTION WIDTH 15.5 % (11.6-17.2); REVIEW FLAG FINAL; WHITE BLOOD COUNT 19.1 TH/MM3 (4.0-11.0)
[2016-06-24] MEDS: RESP: ALBUTEROL 2.5 MG/IPRATROPIUM 0.5 MG NEB (SCH) NEB ×2 (07:39→13:15)
[2016-06-24 07:40] VITALS: O2SAT 89
[2016-06-24 08:00] VITALS: BP 176/84; PULSE 81; RESP 20; TEMP 96.5; O2SAT 91
[2016-06-24] MEDS: BUDESONIDE-FORMOTEROL 160/4.5 MCG INHALER INH SCH (08:52)
[2016-06-24] MEDS: NEOMYCIN/POLYMYXIN/BACITRACIN OINT 15 GM TUBE TOPICAL SCH (08:52)
[2016-06-24] MEDS: DILTIAZEM-CD 180 MG CAP ER PO SCH (08:52)
[2016-06-24] MEDS: DIGOXIN 0.125 MG TAB PO SCH (08:53)
[2016-06-24] MEDS: RIVAROXABAN 20 MG TAB PO SCH (08:53)
[2016-06-24] MEDS ORDERED: OXYGENTANK NAS.CANULA (10:01)
--- NOTE | 2016-06-24 10:03 | HHI.PR ---
Subjective Remarks Patient seen today in follow-up for respiratory failure (hypoxemic/hypercapnic) . Overnight off of BiPAP and tolerating nasal cannula at about 4 L. No new complaints. No issues on telemetry Objective Vitals Vital Signs Date Time Temp Pulse Resp B/P Pulse Ox O2 Delivery O2 Flow Rate FiO2 06/24/16 07:40 89 Nasal Cannula 4.00 06/24/16 04:20 92 Nasal Cannula 4.00 06/24/16 04:00 95.9 73 20 165/99 92 06/24/16 00:15 93 Nasal Cannula 4.00 06/24/16 00:00 96.1 81 22 160/84 93 06/23/16 22:32 20 06/23/16 21:00 95 06/23/16 20:30 93 Nasal Cannula 4.00 06/23/16 20:00 98.9 96 20 190/78 91 06/23/16 19:24 89 Nasal Cannula 3.50 06/23/16 17:19 89 Nasal Cannula 4.00 06/23/16 16:00 98.0 80 20 180/90 91 06/23/16 14:07 89 Nasal Cannula 4.00 06/23/16 12:40 92 4.00 06/23/16 12:00 97.8 80 20 182/93 90 06/23/16 11:50 4.00 I/O 06/23/16 06/23/16 06/23/16 06/24/16 06/24/16 06/24/16 07:00 15:00 23:00 07:00 15:00 23:00 Intake Total 80 ml 600 ml 480 ml 480 ml Output Total 200 ml Balance -120 ml 600 ml 480 ml 480 ml Intake Oral 80 ml 600 ml 480 ml 480 ml IV Total 0 ml Output Urine Total 200 ml Stool Total 0 ml # Voids 2 2 # Bowel Movements 1 0 Result Diagram: 06/24/16 0550 06/23/16 1210 Objective Remarks GENERAL: This is a well-nourished, well-developed patient, in no apparent distress. CARDIOVASCULAR: Atrial fibrillation with regular rate without murmurs, gallops, or rubs. RESPIRATORY: Decreased air flow, overall Clear to auscultation. Breath sounds equal bilaterally. No wheezes, rales, or rhonchi. GASTROINTESTINAL: Abdomen soft, non-tender, nondistended. Normal active bowel sounds MUSCULOSKELETAL: Extremities without clubbing, cyanosis, or edema. NEURO: Alert & Oriented x4 to person, place, time, situation. Moves all ext x4 A/P Problem List: (1) Acute respiratory failure ICD Code: J96.00 Status: Acute Plan: Acute hypoxemic and hypercapnic respiratory failure Continue with BiPAP overnight PRN, patient with severe COPD and is on 4 L now. Continue with steroids, bronchodilators (2) Atrial flutter, paroxysmal ICD Code: I48.92 Status: Chronic (3) Hyperglycemia ICD Code: R73.9 Status: Acute Plan: Likely due to steroids, wean as tolerated Discharge Planning home when stable Problem Qualifiers (1) Acute respiratory failure: Qualified Code: J96.01 - Acute respiratory failure with hypoxia and hypercapnia Imelda Boykin MD Jun 24, 2016 10:03
[2016-06-24] MEDS ORDERED: XARE20TA PO (10:06)
[2016-06-24] MEDS ORDERED: CARD180C5 PO (10:06)
[2016-06-24] MEDS ORDERED: PRED20 PO (10:06)
[2016-06-24] MEDS ORDERED: DIGO0.12 PO (10:06)
--- NOTE | 2016-06-24 10:10 | HHI.DS ---
Discharge Summary Admission Date Jun 12, 2016 at 15:54 Discharge Date: Jun 24, 2016 Admitting Diagnosis respiratory distress, atrial flutter, COPD exacerbation (1) Acute respiratory failure ICD Code: J96.00 (2) Atrial flutter, paroxysmal ICD Code: I48.92 (3) Hyperglycemia ICD Code: R73.9 Procedures none Brief History - From Admission The patient is a 61-year-old male with known history of COPD who presented to emergency department with worsening shortness of breath over the past few days. He uses 3 L of oxygen at night, but no supplemental oxygen during the day. He has seen pulmonology recently and was supposed to get a CT of his chest with contrast done yesterday as an outpatient. He was unable to go get the test done because he had worsening symptoms and presented to the ER. He states that he does feel better today after receiving treatment. He is currently on 4 L of oxygen. He developed atrial fibrillation/flutter with RVR while in the ER. He was given a dose of IV Cardizem and his heart rate improved. He denies chest pain. Still reporting cough and dyspnea. CBC/BMP: 06/24/16 0550 06/23/16 1210 Significant Findings Laboratory Tests Test 06/23/16 06/23/16 06/24/16 05:00 12:10 05:50 Blood Gas HCO3 39 mmol/L (22-26) Blood Gas Base Excess 13.1 mmol/L (-2-2) Arterial Blood pH 7.37 (7.380-7.420) Arterial Blood Partial 69 mmHG (38-42) Pressure CO2 White Blood Count 18.0 TH/MM3 19.1 TH/MM3 (4.0-11.0) (4.0-11.0) Neutrophils (%) (Auto) 92.9 % (16.0-70.0) Lymphocytes (%) (Auto) 2.9 % (9.0-44.0) Neutrophils # (Auto) 16.7 TH/MM3 (1.8-7.7) Lymphocytes # (Auto) 0.5 TH/MM3 (1.0-4.8) Chloride Level 95 MEQ/L (98-107) Carbon Dioxide Level 38.7 MEQ/L (21.0-32.0) Blood Urea Nitrogen 22 MG/DL (7-18) Random Glucose 234 MG/DL (74-106) Digoxin Level 0.6 NG/ML (0.8-2.0) Red Blood Count 4.47 MIL/MM3 (4.50-5.90) Hemoglobin 12.1 GM/DL (13.0-17.0) Hematocrit 37.3 % (39.0-51.0) Imaging Last Impressions Chest CT 06/16/16 0000 Signed Impressions: Service Date/Time: Thursday, June 16, 2016 22:04 - CONCLUSION: 1. Emphysematous changes. 2. No acute infiltrate or effusion. Joshua Cabezas Jr., MD Chest X-Ray 06/15/16 0000 Signed Impressions: Service Date/Time: Wednesday, June 15, 2016 10:22 - CONCLUSION: No acute disease. Eyal Brewer MD PE at Discharge GENERAL: This is a well-nourished, well-developed patient, in no apparent distress. CARDIOVASCULAR: Atrial fibrillation with regular rate without murmurs, gallops, or rubs. RESPIRATORY: Decreased air flow, overall Clear to auscultation. Breath sounds equal bilaterally. No wheezes, rales, or rhonchi. GASTROINTESTINAL: Abdomen soft, non-tender, nondistended. Normal active bowel sounds MUSCULOSKELETAL: Extremities without clubbing, cyanosis, or edema. NEURO: Alert & Oriented x4 to person, place, time, situation. Moves all ext x4 Pt update on day of discharge Patient seen today in follow-up for respiratory failure and atrial fib. Doing well. Rate is controlled. Discharge plans discussed with patient, sclera therapy team and case management. Patient will need oxygen at home Hospital Course This patient is a 61-year-old gentleman was admitted to the hospital with acute respiratory failure. Patient did have evidence of COPD exacerbation which was quite severe and he was seen by clinical product specialist team's. He did well with noninvasive positive pressure ventilation as well as IV steroids and bronchodilators and a short course of antibiotics. He did have new onset atrial fibrillation which was treated with digoxin and with Cardizem. He was started on Xarelto for anticoagulation. Patient respiratory status continued to improve slowly. The patient was discharged home with home oxygen Pt Condition on Discharge: Good Discharge Disposition: Discharge Home Discharge Time: > 30 minutes Discharge Instructions DIET: Follow Instructions for: As Tolerated, No Restrictions Activities you can perform: Regular-No Restrictions New Medications: Oxygen tank (Oxygen tank) 1 Ea Tank 2-5 LITER VICKIE.CANULA CONTINUOUS Oxygen Concentrator Portable Gaseous 2-5 L/min via Face Mask Continuous For 99 months HYPOXEMIA PREVENTION #1 CYLINDER Digoxin (Digoxin) 0.125 Mg Tab 0.125 MG PO DAILY afib #31 TAB Diltiazem CD 24 HR (Cardizem CD 24 HR) 180 Mg Caper 180 MG PO DAILY afib #31 CAP Prednisone (Prednisone) 20 Mg Tab 20 MG PO BID copd #21 TAB Rivaroxaban (Xarelto) 20 Mg Tab 20 MG PO DAILY afib #31 TAB Continued Medications: Albuterol 18 GM Inh (Ventolin Hfa 18 GM Inh) 90 Mcg/Act Aer 2 PUFF INH Q4H PRN SHORTNESS OF BREATH #1 Ref 0 INHALER Albuterol Neb (Albuterol Neb) 1.25 Mg/3 Ml Neb 1.25 MG NEB Q4HR NEB PRN SHORTNESS OF BREATH #50 Ref 0 NEBULImelda Arellano MD Jun 24, 2016 10:10
[2016-06-24 12:00] VITALS: BP 186/92; PULSE 82; RESP 20; TEMP 96.7; O2SAT 91
[2016-06-24] MEDS ORDERED: VENTAER INH (14:01)
[2016-06-24] MEDS ORDERED: ALBU1.25 NEB (14:01)
[2016-06-24] MEDS ORDERED: IPRASOL NEB (14:18)
[2016-06-24] MEDS ORDERED: SYMB160A INH (14:18)
[2016-06-24] MEDS ORDERED: predniSONE 20 MG TAB PO SCH (21:00)
[2016-07-06] MEDS ORDERED: CARD180C5 PO (12:52)
[2016-07-06] MEDS ORDERED: XARE20TA PO (12:52)
[2016-07-06] MEDS ORDERED: DIGO0.12 PO (12:52)
[2016-07-06] MEDS ORDERED: VENTAER INH (12:52)
[2016-07-06] MEDS ORDERED: ALBU1.25 NEB (12:52)
[2016-07-06] MEDS ORDERED: SYMB160A INH (12:52)
[2016-07-06] MEDS ORDERED: IPRASOL NEB (12:53)
[2016-10-06] MEDS ORDERED: MILK175C7 (10:15)
[2016-10-06] MEDS ORDERED: DIPH25CA PO (10:15)
[2016-10-06] MEDS ORDERED: ASPI325T PO (10:15)
[2016-10-06] MEDS ORDERED: ALBUAER3 INH (10:15)
[2016-10-06] MEDS ORDERED: ADVA500A INH (10:25)
[2016-10-06] MEDS ORDERED: VENTAER INH (10:30)
[2016-10-06] MEDS ORDERED: ROBA750T PO (10:30)
== END 2016-06-24 14:28 | disposition home health service (06) | DRG 189 ==
LOC: PHED 13:58 → PHEDA 15:54 → PHICU 17:29 → PH3B 06-20 07:16
PROVIDERS: ADMIT Hospitalist; ATTEND Hospitalist
PROC: 5A09557 Assistance with Respiratory Ventilation, Greater than 96 Consecutive Hours, Continuous Positive Airway Pressure (ICD-10-PCS; principal; 2016-06-12)
DX: J96.21 Acute and chronic respiratory failure with hypoxia (principal); E87.2 Acidosis; Z99.81 Dependence on supplemental oxygen; I48.92 Unspecified atrial flutter; J44.1 Chronic obstructive pulmonary disease with (acute) exacerbation; J45.909 Unspecified asthma, uncomplicated; I10 Essential (primary) hypertension; J96.22 Acute and chronic respiratory failure with hypercapnia; R73.9 Hyperglycemia, unspecified; T38.0X5A Adverse effect of glucocorticoids and synthetic analogues, initial encounter; R94.6 Abnormal results of thyroid function studies; Z79.01 Long term (current) use of anticoagulants; Z87.891 Personal history of nicotine dependence
CPT/HCPCS: 36600; 71010; 71250; 80048; 80162; 81001; 82550; 82805; 83605; 83735; 83880; 84439; 84443; 84481; 84484; 85025; 85027; 85610; 85730; 87040; 87641; 87804; 93005; 93306; 94002; 94003; 94060; 94150; 94620; 94640; 94664; 94667; 94668; 96361; 96374; 96375; J1644; J1650; J2920; J2930; J7040; J7512; J7613

== ENCOUNTER → 2016-10-12 | Outpatient (CLI) | payer OTHER ==
[~2016-10-12] MED LIST: ADVA500A INH; ALBU1.25 NEB; ALBUAER3 INH; ASPI325T PO; CARD180C5 PO; DIGO0.12 PO; DIPH25CA PO; IPRASOL NEB; MILK175C7; OXYGENTANK NAS.CANULA; ROBA750T PO; SYMB160A INH; VENTAER INH; XARE20TA PO
[2016-10-12 09:20] LABS: HDL CHOLESTEROL 44.3 MG/DL (40.0-60.0); LDL CHOLESTEROL 109 MG/DL (0-99)
[2016-10-12 11:08] LABS: HEMOGLOBIN A1a 1.1 %; HEMOGLOBIN A1b 1.5 %; HEMOGLOBIN Ao 85.8 %; HEMOGLOBIN LA1C 1.9 %; HEMOGLOBIN P3 3.8 %
== END ==
LOC: CLAB 08:18
PROVIDERS: ATTEND Family Medicine
DX: J44.9 Chronic obstructive pulmonary disease, unspecified (principal); R03.0 Elevated blood-pressure reading, without diagnosis of hypertension; R73.09 Other abnormal glucose; I48.92 Unspecified atrial flutter; E66.9 Obesity, unspecified
CPT/HCPCS: 36415; 80061; 83036; 84443